=== PATIENT | female | born 1990 | race Caucasian/White ===

== ENCOUNTER 2020-03-17 10:35 | Outpatient (CLI) | payer OTHER, SELFPAY ==
[2020-03-17 11:36] LABS: Basophils Percent Auto 0.2 % (0.2-1.2); Eosinophils Absolute Auto 0.1 K/mm3 (0-0.3); Eosinophils Percent Auto 1.2 % (0-4.4); Hematocrit 35.6 % (37.0-47.0); Hemoglobin 12.3 g/dL (12.0-15.0); Lymphocytes Absolute Auto 1.41 K/mm3 (0.9-3.2); Mean Corpuscular HGB Conc 34.6 g/dl (32-36); Mean Corpuscular Hemoglobin 31.5 pg (26-34); Mean Corpuscular Volume 91.3 fl (80-100); Mean Platelet Volume 12.6 fl (7.4-10.4); Monocytes Percent Auto 9.9 % (2.6-8.5); Neutrophils Absolute Auto 7.4 K/mm3 (1.3-6.7); Neutrophils Percent Auto 73.7 % (45.5-73.1); Platelet Count Result 119 k/mm3 (150-375); Red Cell Distribution Width 14.6 % (11.5-14.5)
[2020-03-19 08:51] LABS: Rapid Plasma Reagin Reactive (NonReactive)
[2020-03-22 17:21] LABS: Treponema pallidum Ab FTA ABS Reactive (Nonreactive)
== END 2020-03-17 10:36 | disposition home or self-care (01) ==
PROVIDERS: PCP Emergency Medicine; Visit Provider Obstetrics & Gynecology
DX: Z01.89 Encounter for other specified special examinations (principal)
CPT/HCPCS: 36415; 85025; 86592; 86780; 86850; 86900; 86901

== ENCOUNTER 2020-03-19 05:30 | Inpatient (IN) | payer OTHER, SELFPAY ==
--- NOTE | 2020-02-29 14:13 | PC.NURSE ---
VERIFIED WITH OR SCHEDULE AND PATIENT --C/S ON 03/19/20 AT 0730 PATIENT INSTRUCTED SHE WILL NEED TO GET PREOP LABS DRAWN ON 03/17/20 AT [place] PATIENT INFORMED SHE WILL NEED TO BE IN OB 2 HOURS BEFORE SURGERY TIME AND NOTHING BY MOUTH AFTER MIDNIGHT THE NIGHT BEFORE SURGERY, PATIENT VERBALIZED HER UNDERSTANDING
[2020-03-19] VITALS (48 sets, daily range): BP systolic 60–117; BP diastolic 36–72; PULSE 54–94; RESP 16–20; TEMP 36.2–36.9; O2SAT 98–100; BMI 40.8
--- NOTE | 2020-03-19 06:38 | WPDANESEPPF ---
Anes - Initial Pre Proc Eval Procedure: Operation Date: 03/19/20 07:30 Proposed Procedures p Repeat Section - Nils He MD Date/Time: 03/19/20 06:38 Surgeon: Nils He MD Pre Op Diagnosis: Repeat Section Patient Data Age: 30 Gender: F Height: Weight: Last Vital Signs Pulse 94 03/19/20 06:04 BP 117/72 03/19/20 06:04 Allergies Allergy/AdvReac Type Severity Reaction Status Date / Time Sulfa (Sulfonamide Allergy Mild RASH Verified 02/29/20 13:59 Antibiotics) sulfite Allergy Unknown Skin Verified 02/29/20 13:59 Reaction Home Medications Medication Instructions Recorded Confirmed Type acetaminophen 300 mg-codeine 30 mg 1 tablet PO Q4H PRN #20 tablet 08/15/19 Rx tablet PNV cmb#95-ferrous fumarate-FA 1 tablet PO DAILY 02/29/20 02/29/20 History [] Patient hx anesthesia problems: none Family hx anesthesia problems: none PMFSH Family History Family History Father Hypertension Diabetes mellitus Grandparent Hypertension Diabetes mellitus Social History Social History Smoking status: Current every day smoker Substance use: former Spiritual care concerns: No Anes - Eval Final PreProcedure Day of Procedure 03/19/20 06:38 Patient weight: obese Heart: regular rate and rhythm Lungs: clear to auscultation Airway: Mallampati scale class II Neurological: alert and oriented Last oral intake: >/= 8 hours ASA classification: III Emergent: no Anesthetic plan: proceed Anesthesia type and monitoring: regional spinal and standard monitoring Informed Consent: The patient's anesthetic plan and its attendant risks and benefits were discussed with the patient/family/POA. Questions were solicited and answers provided to the satisfaction of the patient/family/POA.
--- NOTE | 2020-03-19 06:49 | LDADM ---
This patient, Marcelle Pascal, was admitted to Labor/Delivery/Recovery 120 on 03/19/20 at 05:30. Plans for labor, pain management and were discussed with patient. Patient/family oriented to hospital policies and general routines including ID bracelet, bed and alarms, visiting hours, pain management, procedures, bathroom and other care routines, personal items, smoking policy, room service/diet and guest tray routines, infant security routines, and visiting hours. Patient/Family are encouraged to report perceived risks to care and to ask questions if they do not understand what they are told or what they should do. See OBIX for further documentation.
--- NOTE | 2020-03-19 06:59 | P.HP_ITS ---
H&P: HPI History of Present Illness Chief complaint: Repeat Section Narrative: Marcelle Pascal is a 30 year old female 002 presents for repeat delivery . She has had 1 vaginal delivery and 1 delivery and presents today for repeat. We have discussed tubal ligation which she does not desire. records are on the chart essentially uncomplicated. She has had a history of syphilis which has been treated through the [facility] and currently no records are available for this. PMFSH Family History Family History Father Hypertension Diabetes mellitus Grandparent Hypertension Diabetes mellitus Social History Social History Smoking status: Current every day smoker Substance use: former Spiritual care concerns: No Meds Home Medications and Allergies Home Medications Medication Instructions Recorded Confirmed Type acetaminophen 300 mg-codeine 30 mg 1 tablet PO Q4H PRN #20 tablet 08/15/19 Rx tablet PNV cmb#95-ferrous fumarate-FA 1 tablet PO DAILY 02/29/20 02/29/20 History [] Allergies Allergy/AdvReac Type Severity Reaction Status Date / Time Sulfa (Sulfonamide Allergy Mild RASH Verified 02/29/20 13:59 Antibiotics) sulfite Allergy Unknown Skin Verified 02/29/20 13:59 Reaction Vital Signs Vital Signs - 24 hr 03/19/20 06:04 Pulse Rate 94 Blood Pressure 117/72 Exam Const: General: no acute distress Resp: Auscultation: clear to auscultation bilaterally Cardio: Rate: regular rate Rhythm: regular rhythm GI: GI Palp: Yes Soft to palpation Other: Fundal height 40cm heart tones 140 Assessment and Plan Assessment and plan (1) Term : Code(s): Z34.90 - Encounter for supervision of normal , unspecified, unspecified trimester Status: Acute (2) Previous delivery affecting : Code(s): O34.219 - Maternal care for unspecified type scar from previous delivery Status: Acute Additional Plan proceed with repeat low transverse section.
[2020-03-19] MEDS: KETOROLAC 30 MG/ML VIAL (*BKC) IV PUSH (07:20)
--- NOTE | 2020-03-19 08:05 | PM.OBPRVD ---
OB - Delivery Note Procedure Procedure: Procedures Operation Date: 03/19/20 07:30 <No data on this case meets the specified criteria> Route of delivery: Indication for instrumentation: other (prior delivery) Estimated blood loss (mL): 600 Anesthesia type: Spinal Disposition: PACU Narrative: Patient prepped draped usual sterile manner for this procedure. Pfannenstiel incision was made which was then carried down to the fascial layer which was extended bilaterally the length of the skin incision. Superiorly and inferiorly the fascia was dissected away from the rectus muscles which were then bluntly dissected the peritoneum was entered. Bladder flap was developed use scored in the lower section and a lower transverse incision was made. Vertex was delivered without difficulty and follow with rest of the baby. Cord is clamped and cut uterus was manually removed and the uterus was then delivered out of the abdominal cavity. Membranes and clots removed from the cavity of the uterus was then closed using 0 Monocryl in a running interlocking manner with good approximation hemostasis noted. Uterus was turned to the abdomen gutters were cleared of serosanguineous fluid and clots and the fascia was approximated 0 Vicryl left angle midline and running midline. Subcutaneous tissue was approximated in 2 0 plain suture and skin juana were used to approximate skin edges. Baby Weeks of gestation at delivery: 39 gender: Female Weight (pounds): 7 Weight (ounces): 11 score one minute: 8 score five minutes: 9
[2020-03-19] MEDS: diphenhydrAMINE HCl INJ 50 MG/ML VIAL 25 MG IV PUSH ×2 (08:45→09:15)
[2020-03-19] MEDS: LORATADINE 10 MG TABLET (10:30)
[2020-03-19] MEDS: OXYTOCIN 30 UNITS/NS 500 ML 30 UNITS/500 ML BAG 125 UNITS IV CONT (10:30)
--- NOTE | 2020-03-19 10:47 | SUR.PHASEI ---
RECOVERY OVER. ASSESSMENT STABLE WITH VS AND FUNDAL CHECKS. IVF INFUING WELL. SCD'S REMAIN. DRESSING D&I. REA DRAINING CLEAR YELLOW URINE. NO PAIN MEDS NEEDED AT THIS TIME. CONTINUES TO ITCH...GIVEN CLARITIN AND BENADRYL
--- NOTE | 2020-03-19 10:54 | OBPPTRN ---
Patient transferred to post room # 285 per stretcher. Support person present. Oriented to unit, room, information board, rooming in, admission packet and security measures. Patient verbalizes understanding.
[2020-03-19] MEDS: LACTATED RINGERS 1,000 ML 125 ML IV CONT ×2 (11:19→11:21)
[2020-03-19] MEDS: IBUPROFEN 600 MG TABLET PO ×2 (13:26→19:05)
[2020-03-19] MEDS: DEXTROSE 5%/0.45% SOD CHL 1,000 ML 125 ML IV CONT (14:31)
[2020-03-20] MEDS: IBUPROFEN 600 MG TABLET PO ×4 (00:40→23:45)
[2020-03-20] MEDS: SIMETHICONE 80 MG TAB.CHEW PO ×9 (00:41→23:45)
[2020-03-20 03:30] VITALS: BP 119/63; PULSE 89; RESP 16; TEMP 36.8
[2020-03-20 04:19] LABS: Basophils Percent Auto 0.3 % (0.2-1.2); Eosinophils Absolute Auto 0.2 K/mm3 (0-0.3); Eosinophils Percent Auto 1.8 % (0-4.4); Hematocrit 32.1 % (37.0-47.0); Hemoglobin 10.8 g/dL (12.0-15.0); Immature Granulocyte Absolute 0.09 K/mm3 (0.00-0.031); Immature Granulocyte Percent A 0.9 % (0-0.5); Lymphocytes Absolute Auto 1.58 K/mm3 (0.9-3.2); Lymphocytes Percent Auto 15.7 % (18.3-44.2); Mean Corpuscular HGB Conc 33.6 g/dl (32-36); Mean Corpuscular Hemoglobin 31.9 pg (26-34); Mean Corpuscular Volume 94.7 fl (80-100); Mean Platelet Volume 12.3 fl (7.4-10.4); Monocytes Percent Auto 9.8 % (2.6-8.5); Neutrophils Absolute Auto 7.2 K/mm3 (1.3-6.7); Neutrophils Percent Auto 71.5 % (45.5-73.1); Platelet Count Result 97 k/mm3 (150-375); Red Blood Count 3.39 M/mm3 (4.2-5.4); Red Cell Distribution Width 14.9 % (11.5-14.5); White Blood Count 10.1 K/mm3 (4.5-10.0)
[2020-03-20] MEDS: MULTIVIT/MIN/PREN/FOL AC/IRON TABLET 1 TAB PO (08:01)
[2020-03-20] MEDS: DOCUSATE SODIUM 100 MG CAPSULE PO ×2 (08:01→17:18)
[2020-03-20] MEDS: LANOLIN (LANSINOH) 7.5 GM CREAM 1 APPLIC TOPICAL (08:03)
[2020-03-20 08:15] VITALS: BP 100/72; PULSE 93; RESP 18; TEMP 36.9; O2SAT 98
--- NOTE | 2020-03-20 14:40 | PC.NURSE ---
Consulted with patient, mother is attempting in football positioning in a shallow latch reporting tenderness with feeding. Mother has bruising to right areola from possible incorrect latching. Reviewed feeding cues, frequencies, duration of feedings, feeding elimination flow sheet, and signs of adequate intake. Reviewed positioning/alignment in cross cradle, holding breast in U hold and guided asymmetrical latch on. Discussed rational for each. Several attempts before infant was able to latch correctly. Mother quickly reported she could feel was latched more deeply and had no discomfort. Infant nursed eagerly, with steady draws and frequent swallowing noted. Reviewed signs of a correct latch, effective nursing and suck swallow ratio. was able to maintain latch without discomfort to mother. Nipple care reviewed. Suggested mother stimulate while feeding to keep infant awake and nursing effectively for increased intake and to assist with maintaining deep latch. Demonstrated how to adjust latch more deeply while feeding. Instructed mother to call out for RN assistance if she is unable to latch infant for feeding or she has discomfort with nursing. Instructed feeding should be initiated three hours from start of last feeding or if feeding cues are noted before. Mother voiced understanding of information shared.
--- NOTE | 2020-03-20 15:08 | WPDANLDPN2 ---
Anes-Prog Note L&D Date/Time: 03/20/20 15:08 Comfortable throughout: section Neuraxial method: spinal Epidural/Spinal procedure site: clean & non-tender Neuro status: Neuro function grossly intact. Cardiovascular status: normal Respiratory status: normal Airway patency: baseline Mental status: baseline Post-Op hydration status: normal Vital Signs: Last Vital Signs Temp 98.4 F 03/20/20 08:15 Pulse 93 03/20/20 08:15 Resp 18 03/20/20 08:15 BP 100/72 03/20/20 08:15 Pulse Ox 98 03/20/20 08:15 I/O: Intake & Output 03/19/20 03/20/20 03/20/20 23:59 07:59 15:59 Intake Total 800 1000 Output Total 1700 2000 Balance -900 -1000 Post-procedural complaints: pruritis severe, treatment refractory Patient feedback: Patient satisfied with anesthetic care.
--- NOTE | 2020-03-20 15:09 | WPDANLDNPN2 ---
Anes-Prog Note L&D-Neuraxial Date/Time: 03/20/20 15:09 Neuraxial medications: intrathecal PF morphine Opiod-related complaints: pruritis severe, treatment refractory Patient feedback: Patient satisfied with post-operative pain management.
--- NOTE | 2020-03-20 16:49 | P.PNOB_ITS ---
OB - PN: Subj Subjective Date/time seen: 03/20/20 16:49 30yo [id number] s/p rLTCS, POD #1 Today, Marcelle said she is doing ok; reports pain at the incision, abdomen, back. She is taking the pain meds which help. She feels like she's bloated and needs to pass gas (has not passed flatus). She reports her vaginal bleeding is light. She is tolerating regular diet w/o N/V. She is voiding without issue. She has ambulated around the room without s/sx of anemia. She is breast feeding. OB - PN: Obj Data Labs CBC & Chem 7: 03/20/20 03:48 Labs: Laboratory Results - last 24 hr 03/20/20 03/20/20 03:48 03:48 WBC 10.1 H RBC 3.39 L Hgb 10.8 L Hct 32.1 L MCV 94.7 MCH 31.9 MCHC 33.6 RDW 14.9 H Plt Count 97 L MPV 12.3 H Immature Gran % (Auto) 0.9 H Neut % (Auto) 71.5 Lymph % (Auto) 15.7 L [place] % (Auto) 9.8 H Eos % (Auto) 1.8 Baso % (Auto) 0.3 Lymph # (Auto) 1.58 [place] # (Auto) 1.0 H Eos # (Auto) 0.2 Baso # (Auto) 0.0 Abs Immat Gran (auto) 0.09 H Absolute Neuts (auto) 7.2 H Absolute Nucleated RBC 0.0 Nucleated RBC % 0.0 RPR Cancelled OB - PN A/P Assessment and Plan (1) S/P section: Code(s): Z98.891 - History of uterine scar from previous surgery Status: Acute (2) 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 - possible d/c home tomorrow Time Spent With Patient Time: Total time spent is greater than 50% in coordination of care (as documented) at patient's floor/unit and/or counseling patient: Review of Systems Constitutional: Constitutional: Denies body ache(s) and Denies chills Cardiovascular: Cardiovascular: Denies rapid heart rate Respiratory: Respiratory: Denies cough and Denies dyspnea Gastrointestinal: Gastrointestinal: Reports abdominal pain, Reports constipation, Denies nausea and Denies vomiting Genitourinary: Comments: normal bleeding Integumentary/Breasts: Skin/Breast: Reports breast swelling and Reports breast pain Neurologic: Denies headache(s) Exam Const: General: comfortable, no acute distress, alert and awake Orientation/consciousness: patient oriented x3 Resp: Effort & Inspection: normal respiratory effort Auscultation: clear to auscultation bilaterally Cardio: Rate: regular rate GI: Auscultation: normal bowel sounds Other: mildly distended, soft, tympanic, pfannenstiel incision is covered with clean dressing. : Other: normal lochia, fundus fim at umbilicus Psych: Appearance: grossly normal Attitude: cooperative
[2020-03-20 20:27] VITALS: BP 114/73; PULSE 84; RESP 16; TEMP 36.8
--- NOTE | 2020-03-21 07:30 | PC.NURSE ---
PT introductions made and plan of care discussed per post op c section, pain management, breast feeding, daily care activities. PT verbalized understanding of such care.
[2020-03-21 07:45] VITALS: BP 122/72; PULSE 72; RESP 18; TEMP 36.6; O2SAT 100
[2020-03-21 08:15] VITALS: PULSE 72; RESP 18; O2SAT 100
[2020-03-21] MEDS: DOCUSATE SODIUM 100 MG CAPSULE PO ×2 (08:15→16:39)
[2020-03-21] MEDS: SIMETHICONE 80 MG TAB.CHEW PO ×2 (08:16→16:39)
[2020-03-21] MEDS: IBUPROFEN 600 MG TABLET PO ×2 (08:16→16:40)
[2020-03-21] MEDS: MULTIVIT/MIN/PREN/FOL AC/IRON TABLET 1 TAB PO (08:17)
--- NOTE | 2020-03-21 10:30 | PC.NURSE ---
Mother is able to independently latch infant with appropriate positioning/alignment. She reports slight nipple discomfort, is feeding as required and waking to feed if needed. Advised to hold breast for latch and during entire feeding to assist with maintaining deep latch. Demonstrated how to adjust latch more deeply while feeding. Mother was able to correct latch during feeding and reports no discomfort. Infant has had at least 8 effective feedings in the past 24 hours, and is currently meeting outcomes for weight, output, jaundice and feeding frequencies. Mother states she feels confident to continue effective at home. Reviewed transition to breast milk, signs of adequate intake, and engorgement/relief. Instructed to call ICP if intake/output less than required. Reviewed regular medications mother is taking. Information provided per Carolyn. Reviewed community resources on the [facility] website and in the Mom/Baby guide. Information on outpatient services provided. Mother has no further questions at this time.
--- NOTE | 2020-03-21 12:16 | PM.OBDSVD ---
DS: Admitting Diagnosis Admitting Diagnosis Admitting Diagnosis: Encounter for supervision of normal , unspecified, unspecified trimester OB - DS: Summary OB Procedures : None OB Procedures Intrapartum: OB Procedures: : None Peripartum Data Procedures: Procedures Operation Date: 03/19/20 07:30 Actual Procedures Side Surgeon p Section Bilateral Nils He MD Time Spent with Patient Time attestation: Total time spent providing and/or coordinating discharge services: Discharge Plan Discharge Discharging Clinician: Nils eH Patient Disposition: Home, Self-Care Activity: as tolerated Diet: as tolerated Wound Care Instructions: incision open to air Discharge Instructions: juana out at hospital visit Patient Instructions: Antibiotic Form Stand Alone Forms: General Discharge Information Follow-up/Referrals: Nils He MD [Physician] - 3 Weeks Discharge Medications: New hydrocodone-acetaminophen 5-325 mg Tablet 1 tab PO Q3H PRN (Reason: Moderate Pain (4-6)) Qty: 20 RF: 0 ibuprofen 600 mg Tablet 600 mg PO Q6H PRN (Reason: Cramping) Qty: 30 RF: 0 simethicone 80 mg Tablet,Chewable 80 mg PO Q2H PRN (Reason: Gas) Qty: 30 RF: 0 Continued PNV cmb#95-ferrous fumarate-FA [] 28 mg iron- 800 mcg Tablet 1 tablet PO DAILY RF: 0 Discontinued acetaminophen-codeine [Tylenol-Codeine #3] 300-30 mg tablet 1 tablet PO Q4H PRN (Reason: pain) Qty: 20 RF: 1 Date of admission: 03/19/20 05:30 Primary Care Provider: Johnathon Magana Admitting Provider: Nils He Attending physician on admission: Nils He
--- NOTE | 2020-03-21 14:30 | PC.NURSE ---
PT received discharge instructions per protocol and verbalized understanding of such care.
--- NOTE | 2020-03-21 16:52 | PC.NURSE ---
Patient was given the opportunity to view the discharge video Mother & Baby Care, The First Two Weeks and to ask questions. Patient declined viewing the video and has been given the mother/baby guide for home reference.
--- NOTE | 2020-03-21 17:34 | PC.NURSE ---
PT discharged to home ambulatory accompanied by significant other and to waiting car. follow up appointments confirmed
[2020-03-23 07:52] VITALS: BP 133/66; PULSE 80; RESP 16; TEMP 36.8
[2020-03-26 10:25] LABS: Reference Lab Test Result Reactive
== END 2020-03-21 17:34 | disposition home or self-care (01) | DRG 540 ==
LOC: ANHLDR 06:08 → ANHOB2 10:58
PROVIDERS: Admitting Provider Obstetrics & Gynecology; PCP Emergency Medicine; Visit Provider Obstetrics & Gynecology
PROC: 10D00Z1 Extraction of Products of Conception, Low, Open Approach (ICD-10-PCS; CPT 59514; principal; 2020-03-19 07:30)
DX: O34.211 Maternal care for low transverse scar from previous cesarean delivery (principal); Z37.0 Single live birth; Z3A.39 39 weeks gestation of pregnancy; O99.214 Obesity complicating childbirth; E66.9 Obesity, unspecified; O99.73 Diseases of the skin and subcutaneous tissue complicating the puerperium; L29.9 Pruritus, unspecified; O98.12 Syphilis complicating childbirth
CPT/HCPCS: 36415; 85025; 86592; 86593; A9270; J0131; J1200; J1885; J2274; J2370; J2405; J2590; J7120

== ENCOUNTER → 2022-01-28 16:58 | Outpatient (CLI) | payer OTHER, SELFPAY ==
--- NOTE | ~2022-01-28 | XR_ITS ---
EXAMINATION: XR knee RT 3V DATE: 01/28/2022 17:25 INDICATION: Chondromalacia patellae TECHNIQUE: Three views of the right knee were obtained. COMPARISON: 07/04/2015 FINDINGS: Alignment is normal. No fracture or osteochondral lesion. Joint spaces are normal with no e rosions. No joint effusion/synovitis. Soft tissues are unremarkable. IMPRESSION: 1. No acute osseous abnormality. Reviewed, dictated and finalized at location F.
== END ==
PROVIDERS: PCP Emergency Medicine; Visit Provider Emergency Medicine
DX: M22.41 Chondromalacia patellae, right knee (principal)
CPT/HCPCS: 73562

== ENCOUNTER 2022-05-01 11:13 | Outpatient (CLI) | payer OTHER, SELFPAY ==
[2022-05-01 12:23] LABS: Rheumatoid Factor < 8.6 IU/ML (<12)
[2022-05-01 13:35] LABS: Erythrocyte Sedimentation Rate 14 mm/hr (0-20)
== END 2022-05-01 11:14 | disposition home or self-care (01) ==
LOC: ANHLAB 11:15
PROVIDERS: PCP Emergency Medicine; Visit Provider Nurse Practitioner Family
DX: M06.9 Rheumatoid arthritis, unspecified (principal)
CPT/HCPCS: 36415; 85652; 86038; 86039; 86430

== ENCOUNTER → 2022-06-11 09:46 | Outpatient (CLI) | payer OTHER, SELFPAY ==
--- NOTE | ~2022-06-11 | US_ITS ---
EXAMINATION: US thyroid DATE: 06/11/2022 10:08 INDICATION: Alicia's thyroiditis TECHNIQUE: Multiple ultrasound images of the thyroid were obtained. COMPARISON: None. FINDINGS: The right thyroid lobe measures 4.9 x 1.1 x 1.4 cm. The left thyroid lobe measures 3.7 x 0.8 x 1.4 c m. Diffuse heterogeneous decreased echogenicity and coarsened echotexture throughout the thyroid. No discrete nodules identified. IMPRESSION: 1. Heterogeneous decreased echogenicity and coarsened echotexture throughout the thyroid without disc rete nodules which would be consistent with provided history of Alicia's thyroiditis. Reviewed, dictated and finalized at location B. IMPRESSION: 1. Heterogeneous decreased echogenicity and coarsened echotexture throughout th e thyroid without discrete nodules which would be consistent with provided hist ory of Alicia's thyroiditis.
== END ==
PROVIDERS: PCP Emergency Medicine; Visit Provider Emergency Medicine
DX: E06.3 Autoimmune thyroiditis (principal)
CPT/HCPCS: 76536

== ENCOUNTER 2022-08-27 14:17 | Outpatient (CLI) | payer OTHER, SELFPAY ==
[2022-08-27 18:38] LABS: Alanine Aminotransferase 27 U/L (6-35); Albumin Level 3.9 g/dL (3.5-5.1); Alkaline Phosphatase 88 U/L (38-126); Anion Gap 3 mmol/L (8-16); Aspartate Amino Transferase 34 U/L (14-36); Bilirubin,Total 0.8 mg/dL (0.2-1.3); Blood Urea Nitrogen 21 mg/dL (7-17); Calcium 8.8 mg/dL (8.4-10.2); Carbon Dioxide 30 mmol/L (22-30); Chloride 104 mmol/L (98-107); Cholesterol 153 mg/dL (0-200); Estimated Glomerular Filt Rate > 60; Glucose 80 mg/dL (65-110); HDL Direct 46 mg/dL; Potassium 4.1 mmol/L (3.4-5.0); Sodium 137 mmol/L (137-145); Triglycerides 100 mg/dL (<150)
[2022-08-27 18:51] LABS: LDL Cholesterol Direct 82 mg/dL
[2022-08-27 19:46] LABS: Hematocrit 40.8 % (37.0-47.0); Hemoglobin 13.8 g/dL (12.0-15.0); Mean Corpuscular HGB Conc 33.8 g/dl (32-36); Mean Corpuscular Hemoglobin 32.1 pg (26-34); Mean Corpuscular Volume 94.9 fl (80-100); Mean Platelet Volume 12.6 fl (7.4-10.4); Platelet Count Result 184 k/mm3 (150-375); Red Cell Distribution Width 12.8 % (11.5-14.5); White Blood Count 6.1 K/mm3 (4.5-10.0)
== END 2022-08-27 14:18 | disposition home or self-care (01) ==
LOC: ANHBWCLAB 14:18
PROVIDERS: PCP Family Medicine; Visit Provider Family Medicine
DX: E07.9 Disorder of thyroid, unspecified (principal)
CPT/HCPCS: 36415; 80053; 80061; 84443; 85027

== ENCOUNTER 2022-11-11 08:45 | Outpatient (CLI) | payer OTHER, SELFPAY ==
--- NOTE | ~2022-11-11 | XR_ITS ---
Right foot Technique: AP and lateral standing views were obtained. Clinical History: Abnormal immunological findings Findings: No acute fracture or dislocation is seen. Osseous alignment is anatomic. Joint spaces are p reserved without erosive or degenerative change. Soft tissues are unremarkable. Impression: Unremarkable right foot radiographs. Reviewed, dictated and finalized at location . Impression: Unremarkable right foot radiographs.
--- NOTE | ~2022-11-11 | XR_ITS ---
Left foot Technique: AP and lateral standing views were obtained. Clinical History: Abnormal immunological findings Findings: No acute fracture or dislocation is seen. Osseous alignment is anatomic. Joint spaces are p reserved without erosive or degenerative change. Soft tissues are unremarkable. Impression: Unremarkable left foot radiographs. Reviewed, dictated and finalized at location . Impression: Unremarkable left foot radiographs.
--- NOTE | ~2022-11-11 | XR_ITS ---
Bilateral Hands Technique: Bilateral PA, oblique, and lateral views, and ball-catcher's view were obtained. Clinical History: Abnormal immunological findings Findings: No acute fracture or dislocation is seen. Osseous alignment is anatomic. Joint spaces are p reserved. Soft tissues are unremarkable. Impression: Unremarkable bilateral hand radiographs. Reviewed, dictated and finalized at location . Impression: Unremarkable bilateral hand radiographs.
--- NOTE | ~2022-11-11 | XR_ITS ---
Right Shoulder Technique: AP and scapular Y views were obtained. Clinical History: Abnormal immunological findings Findings: No fracture or dislocation is seen. Osseous alignment is anatomic. The glenohumeral and acr omioclavicular joint spaces are preserved. Soft tissues are unremarkable. Impression: Unremarkable right shoulder radiographs. Reviewed, dictated and finalized at [facility]. Impression: Unremarkable right shoulder radiographs.
--- NOTE | ~2022-11-11 | XR_ITS ---
Left Shoulder Technique: AP and scapular Y views were obtained. Clinical History: Arthritis Findings: No fracture or dislocation is seen. Osseous alignment is anatomic. The glenohumeral and acr omioclavicular joint spaces are preserved. Soft tissues are unremarkable. Impression: Unremarkable left shoulder radiographs. Reviewed, dictated and finalized at [facility]. Impression: Unremarkable left shoulder radiographs.
[2022-11-11 19:24] LABS: Appearance Urine Clear (Clear); Bilirubin Urine Negative (Negative); Blood Urine Negative (Negative); Color Urine Yellow (Yellow); Glucose Urine UA Negative (Negative); Ketones Urine Negative (Negative); Leukocyte Esterase Ur Negative LEU/UL (Negative); Nitrate Urine Negative (Negative); Protein Urine Negative (Negative); Specific Grav Ur 1.019 (1.001-1.035); Urobilinogen Urine 0.2 mg/dL (<2.0); pH Urine 5.5 (5.0-9.0)
[2022-11-11 19:24] LABS: Alanine Aminotransferase 19 U/L (6-35); Albumin Level 4.8 g/dL (3.5-5.1); Alkaline Phosphatase 81 U/L (38-126); Anion Gap 8 mmol/L (8-16); Aspartate Amino Transferase 32 U/L (14-36); Bilirubin,Total 1.1 mg/dL (0.2-1.3); Blood Urea Nitrogen 18 mg/dL (7-17); CRP < 0.5 mg/dL (<1.0); Calcium 9.5 mg/dL (8.4-10.2); Carbon Dioxide 24 mmol/L (22-30); Chloride 105 mmol/L (98-107); Estimated Glomerular Filt Rate > 60; Glucose 87 mg/dL (65-110); Potassium 4.1 mmol/L (3.4-5.0); Sodium 137 mmol/L (137-145)
[2022-11-11 19:28] LABS: Basophils Percent Auto 0.4 % (0.2-1.2); Eosinophils Absolute Auto 0.2 K/mm3 (0-0.3); Eosinophils Percent Auto 3.3 % (0-4.4); Hematocrit 42.4 % (37.0-47.0); Hemoglobin 14.3 g/dL (12.0-15.0); Immature Granulocyte Absolute 0.01 K/mm3 (0.00-0.031); Immature Granulocyte Percent A 0.2 % (0-0.5); Lymphocytes Absolute Auto 1.78 K/mm3 (0.9-3.2); Lymphocytes Percent Auto 32.8 % (18.3-44.2); Mean Corpuscular HGB Conc 33.7 g/dl (32-36); Mean Corpuscular Hemoglobin 31.1 pg (26-34); Mean Corpuscular Volume 92.2 fl (80-100); Mean Platelet Volume 12.8 fl (7.4-10.4); Monocytes Absolute Auto 0.6 K/mm3 (0.1-0.6); Monocytes Percent Auto 10.7 % (2.6-8.5); Neutrophils Absolute Auto 2.9 K/mm3 (1.3-6.7); Neutrophils Percent Auto 52.6 % (45.5-73.1); Platelet Count Result 198 k/mm3 (150-375); White Blood Count 5.4 K/mm3 (4.5-10.0)
[2022-11-11 19:31] LABS: Add Urine Microscopic? NO
[2022-11-11 19:42] LABS: Complement C3 97 mg/dL (88-165)
[2022-11-11 20:19] LABS: Erythrocyte Sedimentation Rate 5 mm/hr (0-20)
[2022-11-13 19:25] LABS: Treponema pallidum Ab FTA ABS Reactive (Nonreactive)
[2022-11-13 21:29] LABS: Anti Cyclic Citrullinated Pept <16 Units (<20)
[2022-11-14 04:53] LABS: Thyroid Peroxidase Antibodies 13 IU/mL (<9)
[2022-11-15 09:27] LABS: SM Antibody <1.0; SM/RNP Antibody <1.0; SS-A <1.0; SS-B <1.0
[2022-11-16 16:49] LABS: Chromatin Antibody <1.0
== END 2022-11-11 08:46 | disposition home or self-care (01) ==
PROVIDERS: PCP Family Medicine; Visit Provider Internal Medicine
DX: R76.8 Other specified abnormal immunological findings in serum (principal); M19.90 Unspecified osteoarthritis, unspecified site
CPT/HCPCS: 36415; 73030; 73130; 73620; 80053; 81003; 85025; 85652; 86140; 86160; 86200; 86225; 86235; 86376; 86780

== ENCOUNTER 2022-11-17 13:18 | Outpatient (CLI) | payer OTHER, SELFPAY ==
--- NOTE | ~2022-11-17 | XR_ITS ---
EXAM: XR knee RT min 4V, XR knee LT min 4V DATE: 11/17/2022 13:40 HISTORY: M06.9 - Rheumatoid arthritis, unspecified . COMPARISON: Left knee 05/01/2022, images only, x-ray right knee 01/28/2022. FINDINGS: Normal mineralization. No fracture or dislocation. No lytic or blastic lesion. Joint space s are maintained. No erosion or periosteal change. Soft tissues within normal limits. Small bilateral knee joint effusions. IMPRESSION: No radiographic evidence of inflammatory arthropathy. Small bilateral knee joint effusion s. Reviewed, dictated and finalized at location K. IMPRESSION: No radiographic evidence of inflammatory arthropathy. Small bilater al knee joint effusions.
== END 2022-11-17 13:19 | disposition home or self-care (01) ==
LOC: ANHBWCIMG 13:19
PROVIDERS: PCP Family Medicine; Visit Provider Internal Medicine
DX: M06.9 Rheumatoid arthritis, unspecified (principal); M19.90 Unspecified osteoarthritis, unspecified site; M25.461 Effusion, right knee; M25.462 Effusion, left knee
CPT/HCPCS: 73564

== ENCOUNTER 2023-02-02 11:28 | Outpatient (CLI) | payer BC, OTHER, SELFPAY ==
[2023-02-02 20:25] LABS: Free T4 Free Thyroxine 0.88 ng/mL (0.78-2.19)
[2023-02-05 05:12] LABS: Triiodothyronine T3 Free 2.9 pg/mL (2.3-4.2)
== END 2023-02-02 11:29 | disposition home or self-care (01) ==
LOC: ANHBWCLAB 11:30
PROVIDERS: PCP Family Medicine; Visit Provider Family Medicine
DX: R76.8 Other specified abnormal immunological findings in serum (principal)
CPT/HCPCS: 36415; 84439; 84443; 84481

== ENCOUNTER 2023-06-15 09:38 | Outpatient (CLI) | payer BC, SELFPAY ==
[2023-06-15 18:57] LABS: Pregnancy On Board Control Positive; Urine Pregnancy Test Negative
== END 2023-06-15 09:39 | disposition home or self-care (01) ==
PROVIDERS: PCP Family Medicine; Visit Provider Family Medicine
DX: N92.6 Irregular menstruation, unspecified (principal)
CPT/HCPCS: 81025

== ENCOUNTER 2024-03-30 11:03 | Outpatient (CLI) | payer BC, SELFPAY ==
[2024-04-02 04:13] LABS: Amphetamine 9988 ng/mL (<250); Amphetamines POSITIVE ng/mL (<500); Barbiturates NEGATIVE ng/mL (<300); Benzodiazepines NEGATIVE ng/mL (<100); Cocaine Metabolite NEGATIVE ng/mL (<150); Methadone Metabolite NEGATIVE ng/mL (<100); Opiates NEGATIVE ng/mL (<100); Oxidant NEGATIVE mcg/mL (<200); pH 5.9 (4.5-9.0)
== END 2024-03-30 11:04 | disposition home or self-care (01) ==
LOC: ANHBWCLAB 11:04
PROVIDERS: PCP Nurse Practitioner Adult Health; Visit Provider Nurse Practitioner Adult Health
DX: Z79.899 Other long term (current) drug therapy (principal)
CPT/HCPCS: 80299

== ENCOUNTER 2024-09-19 14:31 | Outpatient (CLI) | payer BC, SELFPAY ==
[2024-09-19 20:36] LABS: Beta HCG Quantitative 346.15 mIU/ML
--- OUTSIDE RECORDS SUMMARY | 2024-09-22 14:08 | XMS_ITS | Data Portability ---
Author Organization [facility] Address [address] [place] [address] Assessment No assessment recorded. Plan of Treatment Reminders Order Date Submit Date Provider Last Modified By Organization Details Last Modified Time Details Appointments None record ed. Lab None record ed. Referral None record ed. Procedures None record ed. Surgeries None record ed. Imaging None record ed. Medication Orders None record ed. Patient TargetsNo targets recorded. Patient InstructionsNo instructions recorded. Reason for Referral None Reported. 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 Medical Equipment None Reported. Allergies Allergen ID Allergen Name Allergen Category Reaction Reaction Severity Criticality Documentation Date Start Date Code Code System Note Provider Name and Address Organization Details Recorded Time [id number] 2824e Substance with sulfonami de structure and antibacte rial mechanism of action (substanc e) medicatio n Not available Not available Not available 06/04/2016 97695 8003 SNOMED Not Available Not Available Not Available Medications Not known to be on any medication Vitals Date Recorded Respiratory rate Body height Body temperature Body mass index (BMI) Body weight Heart rate Systolic blood pressure Diastolic blood pressure Provider Name and Address Organization Details Last Updated DateTime 6 28 /min 157.48 cm 97.6 [degF] 25.3 kg/m2 61939.1 95160 g 84 /min 92 mm[Hg] 64 mm[Hg] Charity Parks MA [facility] 6 10:46:48 Social History Question Answer Notes LastModified by Organizat ion Details LastModified Time Tobacco Smoking Status Current Some Day Smoker Charity Parks MA null, [facility] 06/04/2016 10:46:48 How Much Tobacco Do You Smoke? 1 PPW Information not available 06/04/2016 How Many Years Have You Smoked Tobacco? 12 Information not available 06/04/2016 Sex: Unknown Functional Status None recorded. Mental Status None recorded. Family History Relationship Description Onset Age of this Age Resolved Age Notes LastModified by Organization Details LastModified Time Father History of hypertension [email or web address] Not available 10:46:48 Father Diabetes mellitus [email or web address] Not available 06/04 10:46:48 Paternal Grandfather History of hypertension kfenderson Not available 10:46:48 Paternal Grandfather Diabetes mellitus [email or web address] Not available 06/04 10:46:48 Medical History Condition Response Coronary Artery Disease N Other N High Blood Pressure N Atrial Fibrillation N Kidney or Bladder Problems N Thyroid Problems N GI Problems N Depression N COPD N Blood Clots N Skin Problems N Anemia N Heart Attack ([place]) N Anxiety Disorder N Diabetes N Muscle, Joint, or Bone Problems N Seizures/Epilepsy N Acid Reflux (GERD) N Cancer N Stroke N Asthma N Allergies N High Cholesterol N Hepatitis N Liver Disease N Headaches N Heart Failure N Osteoporosis N Gynecological HistoryNo gynecological history recorded. Obstetrics History GPAL:G 0 P 0 0 0 0 Past Encounters Encounter ID Performer Location Encounter Start Date Encounter Closed Date Diagnosis/Indication Diagnosis SNOMED-CT Code Diagnosis ICD10 Code Diagnosis Note [id number] MD Taurus Hager (Adult Med) [address] [place] [address] 06/04/2016 10:29:46 06/04/2016 11:30:44 Adult health examination 038816638 Z00.00 Depressive disorder 3548 9007 F32.8 Pt offered referral to therapist. Says she is OK for now Family his tory of Thyroid disorder 565139088 Z83.49 Pt was tested one year ago Distorted body image 633 89052 F45.22 Pt requesting phentermin e for weight loss Health Concerns Section Related Observation LastModified by Organization Detai ls LastModified Time None Recorded Concern Status LastModified by Organization Details LastModified Time None Recorded Advance Directives Directive None Recorded Payers Encounter Date Sequence Insurance Name Policy Number Policy Melgar Covered Member ID Melgar Member ID Guarantor Name 06/04/2016 1 [facility] - DOS PRIOR TO 2021 (MEDICAID REPLACEMENT - HMO) Marcelle Pascal [id number] Marcelle Pascal Notes Date Note Type Note Provider Name and Address Organization Details Recorded Time 06/04/2016 text/html New patient visit Aliza Vargas MD Attn: [employer],[address] [place], [address], [facility] 06/04/2016 11:34:39 OBGyn Episode No OBEpisode recorded.
--- OUTSIDE RECORDS SUMMARY | 2024-09-22 14:08 | XMS_ITS | Continuity of Care Document ---
Author Organization [facility] Address [address] [place] [address] [place] [address] Phone Care Team Providers Care Hospice Clinical Manager Name Role Phone Johnathon Magana MD Unavailable Unavailable Allergies, Adverse Reactions, Alerts Substance Reaction Status Criticality Sulfa (Sulfonamide Antibiotics) Active No Information Medications Medication Instructions Dosage Effective Dates (start - stop) Status Comments benzonatate 100 mg capsule take 1 capsule by oral route 3 times every day 100 MG - Active prednisone 20 mg tablet take 3 Tablet by oral route every day 60 MG - Active phentermine 37.5 mg tablet take 1 tablet by oral route every day before breakfast 37.5 MG - Active disp on 01/22/22 Problems Condition Type Effective Dates (start - stop) Clini gilbert Status Comments No Known Problems Procedures Procedure Date OFFICE/OUTPATIENT VISIT, EST OFFICE/OUTPATIENT VISIT, EST OFFICE/OUTPATIENT VISIT, EST OFFICE/OUTPATIENT VISIT, EST OFFICE/OUTPATIENT VISIT, EST OFFICE/OUTPATIENT VISIT, EST OFFICE/OUTPATIENT VISIT, EST PREV VISIT, EST, AGE 18-39 OFFICE/OUTPATIENT VISIT, EST OFFICE/OUTPATIENT VISIT, EST PREV VISIT, EST, AGE 18-39 PREV VISIT, EST, AGE 18-39 OFFICE/OUTPATIENT VISIT, EST PREV VISIT, EST, AGE 18-39 OFFICE/OUTPATIENT VISIT, EST OFFICE/OUTPATIENT VISIT, EST OFFICE/OUTPATIENT VISIT, EST PREV VISIT, EST, AGE 18-39 OFFICE/OUTPATIENT VISIT, EST OFFICE/OUTPATIENT VISIT, EST PREV VISIT, NEW, AGE 18-39 Advance Directives Directive Yes / No Effective Date File Name No Information Encounters Encounter Description Practice Location Reason(s) For Visit Diagnoses Date Provider Providers Copied on Encounter OFFICE/OUTPA TIENT VISIT, [facility], [address], [place], [place], [address], [place] tel:[phone] [facility] cough1 (chief complaint) Viral infection 2 Chino Pedro [address], [place], [place], [address] , [place]. tel:[phone] OFFICE/OUTPA TIENT VISIT, [facility], [address], [place], [place], [address], [place] tel:[phone] [facility] vandana (chief complaint) Vandana's thyroiditis 2 Chino Pedro [address], [place], [place], [address] , [place]. tel:[phone] OFFICE/OUTPA TIENT VISIT, [facility], [address], [place], [place], [address], [place] tel:[phone] [facility] hashimoto1 (chief complaint) PANCHO (chief complaint) Vandana's thyroiditisRaised antibody titer 2 Chino Pedro [address], [place], [place], [address] , [place]. tel:[phone] OFFICE/OUTPA TIENT VISIT, [facility], [address], [place], [place], [address], [place] tel:[phone] [facility] PANCHO (chief complaint) hashimoto1 (chief complaint) Raised antibody titerHashimoto's thyroiditisPain in unspecified joint 2 Chino Pedro [address], [address], [place], [place], [address] , [place]. tel:[phone] OFFICE/OUTPA TIENT VISIT, EST [facility], [address], [place], [place], [address], [place] tel:[phone] [facility] knee pain1 (chief complaint) Raised antibody titerPain in unspecified joint Sep- 2 Chino Diego. [address], [place], [place], [address] , [place]. tel:[phone] OFFICE/OUTPA TIENT VISIT, EST [facility], [address], [place], [place], [address], [place] tel:[phone] [facility] knee pain1 (chief complaint) Pain in right kneeChondromalacia patellae, right knee December- 2 Chino Diego. [address], [place], [place], [address] , [place]. tel:[phone] OFFICE/OUTPA TIENT VISIT, EST [facility], [address], [place], [place], [address], [place] tel:[phone] [facility] weight loss1 (chief complaint) Abnormal weight loss 2 Chino Diego. [address], [place], [place], [address] , [place]. tel:[phone] PREV VISIT, EST, AGE 18-39 [facility], [address], [place], [place], [address], [place] tel:[phone] [facility] physical (chief complaint) Encounter for general adult medical examination without abnormal findings 2 Chino Diego. [address], [place], [place], [address] , [place]. tel:[phone] OFFICE/OUTPA TIENT VISIT, EST [facility], [address], [place], [place], [address], [place] tel:[phone] [facility] sick (chief complaint) Viral infection Dec-0 1 Chino Pedro [address], [place], [place], [address] , [place]. [phone] OFFICE/OUTPA TIENT VISIT, EST [facility], [address], [place], [place], [address], [place] tel:[phone] [facility] eczema1 (chief complaint) weight1 (chief complaint) Abnormal weight gainEczema 1 Chino Pedro [address], [place], [place], [address] , [place]. tel:[phone] PREV VISIT, EST, AGE 18-39 [facility], [address], [place], [place], [address], [place] tel:[phone] [facility] physical (chief complaint) Encounter for general adult medical examination without abnormal findings 1 Chino Pedro [address], [place], [place], [address] , [place]. [phone] PREV VISIT, EST, AGE 18-39 [facility], [address], [place], [place], [address], [place] tel:[phone] [facility] syphilis (chief complaint) Encntr for general adult medical exam w/o abnormal findings 9 Chino Pedro [address], [place], [place], [address] , [place]. [phone] Referring Provider: London Jiménez [address], [place], [place], [address]. tel:[phone] OFFICE/OUTPA TIENT VISIT, EST [facility], [address], [place], [place], [address], [place] tel:[phone] [facility] fatigue1 (chief complaint) weight gain1 (chief complaint) Abnormal weight gainFatigue 9 Chino Pedro [address], [place], [place], [address] , [place]. [phone] Referring Provider: Johnathon Magana, [address], [place], [place], [address]. tel:[phone] PREV VISIT, EST, AGE 18-39 [facility], [address], [place], [place], [address], [place] tel:[phone] [facility] PHysical (chief complaint) Encntr for general adult medical exam w/o abnormal findings 8 Chino Diego. [address], [place], [place], [address] , [place]. tel:[phone] Referring Provider: London Jiménez [address], [place], [place], [address]. tel:[phone] OFFICE/OUTPA TIENT VISIT, EST [facility], [address], [place], [address], [place] tel:[phone] [facility] overweight 1 (chief complaint) tobacco1 (chief complaint) Abnormal weight gainGeneralized anxiety disorder 7 Chino Diego. [address], [place], [address] , [place]. tel:[phone] Referring Provider: London Jiménez [address], [place], [place], [address]. tel:[phone] OFFICE/OUTPA TIENT VISIT, EST [facility], [address], [place], [address], [place] tel:[phone] [facility] weight gain1 (chief complaint) anxiety1 (chief complaint) fatigue1 (chief complaint) Abnormal weight gainGeneralized Anxiety DisorderAttention and concentration deficitDietary surveillance and counseling 7 Chino Diego. [address], [place], [address] , [place]. tel:[phone] Referring Provider: London Jiménez [address], [place], [place], [address]. tel:[phone] OFFICE/OUTPA TIENT VISIT, EST [facility], [address], [place], [place], [address], [place] tel:[phone] [facility] Weight issue (chief complaint) vitamin D (chief complaint) knee pain1 (chief complaint) Vitamin D deficiency, unspecifiedBody mass index (BMI) 23.0-23.9, adultPain in unspecified knee Nov-0 7 Chino Diego. [address], [place], [address] , [place]. tel:[phone] Referring Provider: London Jiménez [address], [place], [place], [address]. tel:[phone] PREV VISIT, EST, AGE 18-41 [facility], [address], [place], [place], [address], [place] tel:[phone] [facility] PHysical (chief complaint) Encntr for general adult medical exam w/o abnormal findings 7 Chino Diego. [address], [place], [address] , [place]. tel:[phone] Referring Provider: London Jiménez [address], [place], [place], [address]. tel:[phone] OFFICE/OUTPA TIENT VISIT, EST [facility], [address], [place], [place], [address], [place] tel:[phone] [facility] sick (chief complaint) weight loss1 (chief complaint) Abnormal weight gainAcute bronchitis, unspecified 6 Chino Diego. [address], [place], [place], [address] , [place]. tel:[phone] Referring Provider: London Jiménez [address], [place], [place], [address]. tel:[phone] OFFICE/OUTPA TIENT VISIT, EST [facility], [address], [place], [address], [place] tel:[phone] [facility] Weight gain1 (chief complaint) vitamin D (chief complaint) knee pain (chief complaint) anxiety1 (chief complaint) Abnormal weight gainPain in right kneeVitamin D deficiency, unspecifiedGenerali zed anxiety disorder 5 Chino Diego. [address], [facility] A, [place], [place], [address] , [place]. tel:[phone] Referring Provider: Johnathon Magana [address], [place], [place], [address]. tel:[phone] PREV VISIT, NEW, AGE 18-39 [facility], [address], [place], [place], [address], [place] tel:[phone] [facility] physical (chief complaint) Dietary surveillance and counselingEncounter for adult health check-up 5 Magana Johnathon. [address], [facility] A, [place], [place], [address] , . [phone] Referring Provider: Johnathon Magana London Romeo [facility] A, [place], [place], [address]. tel:[phone] Family History Family Member Type Diagnosis Age At Onset Mother Problem Thyroid disorder Sister Problem (finding) Alive and well Sister Problem (finding) Hypertension Mother Problem (finding) Alive and well Father Problem (finding) Diabetes mellitus type 2 Payers Payer name Insurance type Covered green party ID Authoriza tion(s) No Information Social History Type Description Quantity Date Captured Comments Alcohol Use Details Caffeine Use Details Unknown Tobacco Use Status Heavy cigarette smok er (20-39 cigs/day) Smoking Status Heavy tobacco smoker Sex Female Vital Signs Date / Time: Height Weight BMI Pulse Rate Blood Pressure Temperature Respiratory Rate Body Surface Area Head Circumference BMI percentile Pulse Ox Inhaled Ox 12:24 PM 97.3 F Chief Complaint And Reason For Visit From encounter dated '08/14/2022 12:19'. cough1 (chief complaint). Description: Pt c/o dry cough for 5-6 days Pt lorenzo any fever, chill Pt feels slightly sob with exertion. . Pt denies any sore throat o ear pain Pt is not vaccinated for COVID. Pt denies any wheezing. Pt denies any GI symptoms Plan Of Treatment Date Type Action Status Goal Tobacco cessation counseling completed Goal Special diet education compl eted Goal Special diet education compl eted Referral Ordered: US THYROID ordered Referral Referred To: Gretchen Trinidad [address] [place], [phone] Ordered: Referrals: Gretchen Trinidad. Evaluate and treat ordered Referral Referred To: Enrique Montoya [address] [place], [phone] Ordered: Referrals: Enrique Montoya. Evaluate and treat ordered Referral Ordered: KNEE XRAY TWO-VIEW Right ordered Referral Ordered: KNEE XRAY TWO-VIEW Bilateral ordered History Of Present Illness Encounter Date Complaint History Of Prese nt Illness cough1 Pt c/o dry cough for 5-6 days Pt lorenzo any fever, chill Pt feels slightly sob with exertion. . Pt denies any sore throat o ear pain Pt is not vaccinated for COVID. Pt denies any wheezing. Pt denies any GI symptoms vandana Pt has vandana thyroid disease .Pt denies any dysphagia or neck pain. Pt had another TSH done which was in normal range PANCHO Pt has positive PANCHO and some knee pain but no polyarthralgia. Rheumatology states that they never received the referral hashimoto1 Pt has vandana thyroid disease. Pt denies any dysphagia or neck pain. Pt has underactive thyroid on lab. Pt has ultrasound scheduled for tomorrow. Pt c/o feeling fatigue PANCHO Pt has positive PANCHO.. Pt denies any polyarthralgia. pt does have bilateral knee pain with some swelling. Pt is seeing ortho hashimoto Pt has elevated TPO. Pt denies any dysphagia or neck pain. Pt has family history of autoimmune thyroid disease. knee pain1 Pt has chronic b ilateral knee pain. Pt denies any knee swelling or redness or warmth. Pt denies any injury Pt denies any other joint pain. Pt went to see ortho who ordered some lab work and told her that she has rheumatoid arthritis Pt is very concerned about it. I reviewed her lab work from ortho who showed normal RA factor and her PANCHO is slightly elevated knee pain1 Pt c/o acute ons et of right knee pain since two days ago. Pt feels achy type of pain .Pt denies any swelling or redness or warmth Pt denies any calf pain Pt denies any injury Pt denies any recent travel or bedrest. her mom has chronic knee issue s/p early age knee replacement Pt feels that her cartilage in her knee is wearing thin. Pt does have chronic right knee pain with intermittent flare up weight loss1 Pt has been taki ng phentermine for the past 3 months and she lost between 5-10 pounds. Pt tolerating phentermine ok Pt denies any nausea ,vomiting, diarrhea. headache, chest pain. Pt wants to refill phentermine. physical Pt needs annual physical Pt overall feels well Pt gained some weight recently. Pt is not very physically active pt is rather sedentary. Pt wants to try phentermine again. Pt tolerated phentermine well in the past .Pt wants to try phentermine again .Pt denies any other complaints. sick Pt c/o acute ons et of running nose, sinus congestion, postnasal drainage, productive coughing with yellow phlegm, sore throat, sinus pain for 3 days Pt denies any sick contact Pt denies any loss of taste and smell. pt is not vaccinated for COVID Pt denies any headache or GI symptoms. Pt denies any fever or sob. Pt denies any dysphagia weight1 Pt has been taki ng phentermine for the past 3 months. Pt lost 20 pounds. Pt denies any chest pain, headache, dry mouth. Pt feels well with phentermine. eczema1 Pt c/o itching a nd peeling spot right palm area for 6 months. pt notices some bleeding sometimes. Pt feels pain when she open her palm. Pt denies any itching. Pt states that the skin cracks open whenever she tries to open her palm. Pt denies any scab. Pt notices a lot of flaking around the area Pt denies any spreading. Pt tried OTC cream but not helping. physical Pt needs annual physical. pt is 6 months . Pt is not breast feeding. Pt gained 30 pounds . Pt wants to try phentermine again Pt denies any other complaints syphilis Pt needs annual physical, Pt had multiple sex partners recently Pt was diagnosed with chlamydia and she [facility]. Pt denies any pelvic pain, vaginal discharge, etc Pt was tested negative for HIV and also GC. Pt was also tested positive for syphilis. Pt denies any symptoms, Pt is not sure when she was contracted for syphilis. Pt denies any painful vaginal blisters or any neurological symptoms, Pt received bicillin LA 2.4 million units x 2 dose already and she is due for 3rd and final dose today. fatigue1 Pt feels chronic fatigue. Pt sleeps ok at night. Pt does not have insomnia. pt states that she wakes up tired and feels tired all day. Pt states that she has lack of motivation. Pt denies any depression or any suicidal thought. Pt denies any anxiety. pt has difficulty with focus and concentration as well. Pt wants to try phentermine vs adderall. weight gain1 Pt has gained so me weight. Pt wants to try phentermine. PHysical Pt needs annual physical. Pt states that she wants some phentermine. Pt wants to try to suppress her appetite. Pt denies any GI issue. Pt denies any chest pain or headache. 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 Pt is afraid of taking anxiety meds Pt denies any depression or any suicidal thought. Pt denies any cyring spells overweight1 Pt took phenterm ine for 3 months pt wants to lose 10 more pounds Pt has been diet and exercising without any further weight loss. Pt wants to continue to take phentermine weight gain1 Pt has been gain ing weight again. pt is not very active Pt is trying diet and exercise but she keeps gaining weight. Pt used to take phentermine. which worked well. fatigue1 Pt feels fatigue . Pt has mild insomnia Pt denies any snoring or any trouble with breathing in the morning. Pt feels randomly tired throughout the day. Pt does not go to sleep until 2 am due to anxiety anxiety1 Pt has chronic a nxiety. Pt feels depressed sometimes due to anxiety. Pt denies any suicidal thought Pt feels very irritable. Pt feels angery all the time. Pt has diffiiculty with focus and concentration. Pt states that she gets frustrated about work and home life. 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 Pt denies any crying spells knee pain1 Pt has bilateral knee pain on and off for several years. Pt denies any injury. Pt denies any knee swelling. Her mom has chronic knee problem. Pt states that knee hurts randomly, especially when she bent her legs. . Pt denies any redness or warmth vitamin D Pt has low D. Re st of lab ok Weight issue Pt has been losi ng weight with phentermine. Pt denies any chest pain or headache. Pt feels more energy. Pt has lost some weight with phentermine Pt wants to continue it now. Pt states that she skipps dose someday PHysical Pt needs annual physical. pt gained 20 pounds since several months ago. Pt overall feels well. Pt took phentermine which worked well. Pt wants to try phentermine again . Pt denies any chest pain or headache with phentermine. Pt denies any other complaints sick Pt c/o persisten t sinus burning, drainage, postnasal, sore throat, mild ear pain and persistent dry and phlegmy cough for almost one week. Pt denies any fever, chill. Pt failed OTC meds. Pt denies any recen travel weight loss1 Pt has been taki ng phentemrine for 3 months Pt tolerating medication well. Pt denies any chest pain, headache, etc, Pt lost almost 25 pounds Pt denies any nausea, vomiting, diarrhea. Pt feels less appetite with phentemrine and also feels more energy and better focus. Pt wants to continue meds. anxiety1 PT feels anxious and sadness. Pt has personal relationship issue and also feels overwhelmed with some daily stress. Pt denies any thought of hurting herself or anybody else. Pt has some crying spells. Pt denies feeling hopelessness knee pain Location: knee. Additional information: Pt c/o bilateral knee pain for several months. Pt denies any injury. Pt notices sharp pain when she goes [employer]. Pt feels pain under knee cap, Pt denies any swelling Pt has constant pain. vitamin D Pt has low vitam in D on lab work. Rest of lab ok Weight gain1 Pt has been losi ng weight with phentermine. pt denies any chest pain or headache. Pt feels more energy and less appetite. physical 25 yo female nee ds annual physical. Pt gained 20 punds during last year. Pt had baby one year ago but did not lose to prepregnancy weight. Pt always feels hungry all the time. Pt eats large portion. Pt is working on diet and exercise but unable to lose weight. Pt denies any other complaints Instructions Date Instruction Additional Infor mation Special diet education Related t o Body mass index (BMI) 26.0-26.9, adult Increase physical activity Relat ed to Abnormal weight gain Weight management Related to Abn ormal weight gain Increase activity. Related to En cntr for general adult medical exam w/o abnormal findings Special diet education Related t o Body mass index (BMI) 24.0-24.9, adult Weight management Related to Abn ormal weight gain Quit smoking Related to Abnor mal weight gain Increase physical activity Relat ed to Abnormal weight gain Increase physical activity Relat ed to Abnormal weight gain Weight management Related to Abn ormal weight gain Prescribed Activity and Exercise Education Related to Dietary Surveillance and Counseling Prescribed Diet Educ ation/Lifestyle Education Regarding Diet Related to Dietary Surveillance and Counseling Prescribed Activity and Exercise Education Related to Dietary Surveillance and Counseling Prescribed Diet Educ ation/Lifestyle Education Regarding Diet Related to Dietary Surveillance and Counseling Assessments Type Assessment Date assessment Viral infection Mental Status Date Cognitive Assessment Orientation - [place] ed to time, place, person, situation.
== END 2024-09-19 14:32 | disposition home or self-care (01) ==
PROVIDERS: PCP Nurse Practitioner Adult Health; Visit Provider Obstetrics & Gynecology
DX: N92.6 Irregular menstruation, unspecified (principal)
CPT/HCPCS: 36415; 84702

== ENCOUNTER 2024-09-21 11:54 | Outpatient (CLI) | payer BC, SELFPAY ==
[2024-09-21 20:02] LABS: Beta HCG Quantitative 920.38 mIU/ML
== END 2024-09-21 11:55 | disposition home or self-care (01) ==
LOC: ANHBWCLAB 11:56
PROVIDERS: PCP Nurse Practitioner Adult Health; Visit Provider Obstetrics & Gynecology
DX: N92.6 Irregular menstruation, unspecified (principal)
CPT/HCPCS: 36415; 84702

== ENCOUNTER 2025-01-03 09:24 | Outpatient (CLI) | payer BC, SELFPAY ==
--- OUTSIDE RECORDS SUMMARY | 2025-01-03 09:57 | XMS_ITS | Continuity of Care Document ---
Author Organization [facility] Address [address] [place] [address] [place] [address] Phone Care Team Providers Care Portrait Photographer Name Role Phone Johnathon Magana MD Unavailable [...] Providers Copied on Encounter OFFICE/OUTPA TIENT VISIT, [facility], [address], [place], [place], [address], [place] tel:[phone] [facility] cough1 (chief complaint) Viral infection 2 Chino Pedro [address], [address], [place], [place], [address] , [place]. tel:[phone] OFFICE/OUTPA TIENT VISIT, [facility], [address], [place], [place], [address], [place] tel:[phone] [facility] vandana (chief complaint) Vandana's thyroiditis 2 Chino Pedro [address], [address], [place], [place], [address] , [place]. tel:[phone] OFFICE/OUTPA TIENT VISIT, [facility], [address], [place], [place], [address], [place] tel:[phone] [facility] hashimoto1 (chief complaint) PANCHO (chief complaint) Vandana's thyroiditisRaised antibody titer 2 Chino Pedro [address], [address], [place], [place], [address] , [place]. tel:[phone] OFFICE/OUTPA TIENT VISIT, [facility], [address], [place], [place], [address], [place] tel:[phone] [facility] PANCHO (chief complaint) hashimoto1 (chief complaint) Raised antibody titerHashimoto's thyroiditisPain in unspecified joint 2 Chino Pedro [address], [address], [place], [place], [address] , [place]. tel:[phone] OFFICE/OUTPA TIENT VISIT, EST [facility], [address], [place], [place], [address], [place] tel:[phone] [facility] knee pain1 (chief complaint) Raised antibody titerPain in unspecified joint Sep- 2 Chino Diego. [address], [address], [place], [place], [address] , [place]. tel:[phone] OFFICE/OUTPA TIENT VISIT, EST [facility], [address], [place], [place], [address], [place] tel:[phone] [facility] knee pain1 (chief complaint) Pain in right kneeChondromalacia patellae, right knee December- 2 Chino Diego. [address], [address], [place], [address] , [place]. tel:[phone] OFFICE/OUTPA TIENT VISIT, EST [facility], [address], [place], [place], [address], [place] tel:[phone] [facility] weight loss1 (chief complaint) Abnormal weight loss 2 Chino Diego. [address], [address], [place], [address] , [place]. tel:[phone] PREV VISIT, EST, AGE 18-39 [facility], [address], [place], [place], [address], [place] tel:[phone] [facility] physical (chief complaint) Encounter for general adult medical examination without abnormal findings 2 Chino Diego. [address], [address], [place], [address] , [place]. tel:[phone] OFFICE/OUTPA TIENT VISIT, EST [facility], [address], [place], [place], [address], [place] tel:[phone] [facility] sick (chief complaint) Viral infection Dec-0 1 Chino Pedro [address], [address], [place], [place], [address] , [place]. [phone] OFFICE/OUTPA TIENT VISIT, EST [facility], [address], [place], [place], [address], [place] tel:[phone] [facility] eczema1 (chief complaint) weight1 (chief complaint) Abnormal weight gainEczema 1 Chino Pedro [address], [address], [place], [place], [address] , [place]. tel:[phone] PREV VISIT, EST, AGE 18-39 [facility], [address], [place], [address], [place] tel:[phone] [facility] physical (chief complaint) Encounter for general adult medical examination without abnormal findings 1 Chino Pedro [address], [address], [place], [place], [address] , [place]. [phone] PREV VISIT, EST, AGE 18-41 [facility], [address], [place], [place], [address], [place] tel:[phone] [facility] syphilis (chief complaint) Encntr for general adult medical exam w/o abnormal findings 9 Chino Pedro [address], [address], [place], [place], [address] , [place]. [phone] Referring Provider: London Jiménez [address], [place], [place], [address]. tel:[phone] OFFICE/OUTPA TIENT VISIT, EST [facility], [address], [place], [address], [place] tel:[phone] [facility] fatigue1 (chief complaint) weight gain1 (chief complaint) Abnormal weight gainFatigue 9 Chino Pedro [address], [address], [place], [place], [address] , [place]. tel: [phone] Referring Provider: Johnathon Magana, [address], [place], [place], [address]. tel:[phone] PREV VISIT, EST, AGE 18-39 [facility], [address], [place], [place], [address], [place] tel:[phone] [facility] PHysical (chief complaint) Encntr for general adult medical exam w/o abnormal findings 8 Chino Diego. [address], [address], [place], [address] , [place]. tel:[phone] Referring Provider: London Jiménez [address], [place], [place], [address]. tel:[phone] OFFICE/OUTPA TIENT VISIT, EST [facility], [address], [place], [place], [address], [place] tel:[phone] [facility] overweight 1 (chief complaint) tobacco1 (chief complaint) Abnormal weight gainGeneralized anxiety disorder 7 Chino Diego. [address], [address], [place], [place], [address] , [place]. tel:[phone] Referring Provider: London Jiménez [address], [place], [place], [address]. tel:[phone] OFFICE/OUTPA TIENT VISIT, EST [facility], [address], [place], [address], [place] tel:[phone] [facility] weight gain1 (chief complaint) anxiety1 (chief complaint) fatigue1 (chief complaint) Abnormal weight gainGeneralized Anxiety DisorderAttention and concentration deficitDietary surveillance and counseling 7 Chino Diego. [address], [place], [place], [address] , [place]. tel:[phone] Referring Provider: London Jiménez [address], [place], [place], [address]. tel:[phone] OFFICE/OUTPA TIENT VISIT, EST [facility], [address], [place], [address], [place] tel:[phone] [facility] Weight issue (chief complaint) vitamin D (chief complaint) knee pain1 (chief complaint) Vitamin D deficiency, unspecifiedBody mass index (BMI) 23.0-23.9, adultPain in unspecified knee Nov-0 7 Chino Diego. [address], [place], [address] , [place]. tel:[phone] Referring Provider: London Jiménez [address], [place], [place], [address]. tel:[phone] PREV VISIT, EST, AGE 18-39 [facility], [address], [place], [place], [address], [place] tel:[phone] [facility] PHysical (chief complaint) Encntr for general adult medical exam w/o abnormal findings 7 Chino Diego. [address], [place], [place], [address] , [place]. tel:[phone] Referring Provider: London Jiménez [address], [place], [place], [address]. tel:[phone] OFFICE/OUTPA TIENT VISIT, EST [facility], [address], [place], [address], [place] tel:[phone] [facility] sick (chief complaint) weight loss1 (chief complaint) Abnormal weight gainAcute bronchitis, unspecified 6 Chino Diego. [address], [place], [place], [address] , [place]. tel:[phone] Referring Provider: London Jiménez [address], [place], [place], [address]. tel:[phone] OFFICE/OUTPA TIENT VISIT, EST [facility], [address], [place], [address], [place] tel:[phone] [facility] Weight gain1 (chief complaint) vitamin D (chief complaint) knee pain (chief complaint) anxiety1 (chief complaint) Abnormal weight gainPain in right kneeVitamin D deficiency, unspecifiedGenerali zed anxiety disorder 5 Chino Diego. [address], [facility] [address], [place], [place], [address] , [place]. tel:[phone] Referring Provider: Johnathon Magana [address], [place], [place], [address]. tel:[phone] PREV VISIT, NEW, AGE 18-39 [facility], [address], [place], [address], [place] tel:[phone] [facility] physical (chief complaint) Dietary surveillance and counselingEncounter for adult health check-up 5 Magana Johnathon. [address], [facility] [address], [place], [place], [address] , . [phone] Referring Provider: Johnathon Magana London Romeo [facility] [address], [place], [place], [address]. tel:[phone] Family History Family Member Type Diagnosis Age [...] To: Gretchen Trinidad [address] [place], [phone] Ordered: Referrals: Gretchen Trinidad. Evaluate and treat ordered Referral Referred To: Enrique Montoya [address] [place], [phone] Ordered: Referrals: Enrique Montoya. Evaluate and treat [...] TSH done which was in normal range hashimoto Pt has vandana thyroid disease. Pt denies any dysphagia or neck pain. Pt has underactive thyroid on lab. Pt has ultrasound scheduled for tomorrow. Pt c/o feeling fatigue PANCHO Pt has positive PANCHO and some knee pain but no polyarthralgia. Rheumatology states that they never received the referral PANCHO Pt has positive PANCHO.. Pt denies [...] or headache. Pt denies any other complaints overweight1 Pt took phenterm ine for 3 months pt wants to lose 10 more pounds Pt has been diet and exercising without any further weight loss. Pt wants to continue to take phentermine tobacco1 Pt restated toba tobacco wetter smoking again due to stress Pt did not try buspar. Pt is afraid of taking anxiety meds Pt denies any depression or any suicidal thought. Pt denies any cyring spells anxiety1 Pt has chronic a nxiety. Pt [...] the time. Pt denies any crying spells fatigue1 Pt feels fatigue . Pt has mild insomnia Pt denies any snoring or any trouble with breathing in the morning. Pt feels randomly tired throughout the day. Pt does not go to sleep until 2 am due to anxiety weight gain1 Pt has been gain ing weight again. pt is not very active Pt is trying diet and exercise but she keeps gaining weight. Pt used to take phentermine. which worked well. Weight issue Pt has been losi ng weight with phentermine. Pt denies any chest pain or headache. Pt feels more energy. Pt has lost some weight with phentermine Pt wants to continue it now. Pt states that she skipps dose someday vitamin D Pt has low D. Re st of lab ok knee pain1 Pt has bilateral knee pain on and off for several years. Pt denies any injury. Pt denies any knee swelling. Her mom has chronic knee problem. Pt states that knee hurts randomly, especially when she bent her legs. . Pt denies any redness or warmth PHysical Pt needs annual physical. pt gained 20 pounds since several months ago. Pt overall feels well. Pt took phentermine which worked well. Pt wants to try phentermine again . Pt denies any chest pain or headache with phentermine. Pt denies any other complaints weight loss1 Pt has been taki ng phentemrine for 3 months Pt tolerating medication well. Pt denies any chest pain, headache, etc, Pt lost almost 25 pounds Pt denies any nausea, vomiting, diarrhea. Pt feels less appetite with phentemrine and also feels more energy and better focus. Pt wants to continue meds. sick Pt c/o persisten t sinus burning, drainage, postnasal, sore throat, mild ear pain and persistent dry and phlegmy cough for almost one week. Pt denies any fever, chill. Pt failed OTC meds. Pt denies any recen travel Weight gain1 Pt has been losi ng weight with phentermine. pt denies any chest pain or headache. Pt feels more energy and less appetite. vitamin D Pt has low vitam in D on lab work. Rest of lab ok knee pain Location: knee. Additional information: Pt c/o bilateral knee pain for several months. Pt denies any injury. Pt notices sharp pain when she goes upstaris. Pt feels pain under knee cap, Pt denies any swelling Pt has constant pain. anxiety1 PT feels anxious and sadness. Pt has personal relationship issue and also feels overwhelmed with some daily stress. Pt denies any thought of hurting herself or anybody else. Pt has some crying spells. Pt denies feeling hopelessness physical 25 yo female nee ds annual [...] Education Related to Dietary Surveillance and Counseling Assessments Type Assessment Date assessment Viral infection Mental Status Date Cognitive Assessment Orientation - [place] ed to time, place, person, situation.
--- OUTSIDE RECORDS SUMMARY | 2025-01-03 09:57 | XMS_ITS | Data Portability ---
[facility] Address [address] [place] [address] Assessment No assessment recorded. Plan of Treatment [...] Address Organization Details Recorded Time Depressive disorder 70331535 Active Aliza Vargas MD Attn: Tessie krueger,[address] [facility], [place], [address], [facility] 6 11:34:21 Distorted body image 87584381 Active Aliza Vargas MD Attn: Tessie g,[address] [place], [address], [facility] 6 11:34:21 Problem Notes None recorded. Medical Equipment None Reported. Allergies Allergen ID Allergen Name Allergen Category Reaction Reaction Severity Criticality Documentation Date Start Date Code Code System Note Provider Name and Address Organization Details Recorded Time 48340 Substance with sulfonami de structure and antibacte rial mechanism of action (substanc e) medicatio n Not available Not available Not available 06/04/2016 44743 8003 SNOMED DUSTY Castro, [facility] 6 10:46:48 Medications Not known to be on any medication Vitals Date Recorded Respiratory rate Body height Body temperature Body mass index (BMI) Body weight Heart rate Systolic blood pressure Diastolic blood pressure Provider Name and Address Organization Details Last Updated DateTime 6 28 /min 157.48 cm 97.6 [degF] 25.3 kg/m2 35200.1 50682 g 84 /min 92 mm[Hg] 64 mm[Hg] Charity Parks MA [facility] 6 10:46:48 Social History Question Answer Notes LastModified by Organizat ion Details LastModified Time Tobacco Smoking Status Current Some Day Smoker Charity Parks MA null, [facility] 06/04/2016 10:46:48 How Much Tobacco Do You [...] Response Coronary Artery Disease N Other N Atrial Fibrillation N High Blood Pressure N Depression N COPD N Blood Clots N Anxiety Disorder N Muscle, Joint, or Bone Problems N Acid Reflux (GERD) N Cancer N Stroke N High Cholesterol N Liver Disease N Headaches N Kidney or Bladder Problems N Thyroid Problems N GI Problems N Skin Problems N Anemia N Heart Attack (NV) N Diabetes N Seizures/Epilepsy N Asthma N Allergies N Hepatitis N Heart Failure N Osteoporosis N Gynecological HistoryNo gynecological history recorded. Obstetrics History GPAL:G 0 P 0 0 0 0 Past Encounters Encounter ID Performer Location Encounter Start Date Encounter Closed Date Diagnosis/Indication Diagnosis SNOMED-CT Code Diagnosis ICD10 Code Diagnosis Note [id number] MD Taurus Hager (Adult Med) [address] [place] [address] 06/04/2016 10:29:46 06/04/2016 11:30:44 Adult health examination 325714461 Z00.00 Depressive disorder 3548 9007 F32.8 Pt offered referral to therapist. Says she is OK for now Family his tory of Thyroid disorder 140797673 Z83.49 Pt was tested one year ago Distorted body image 633 98297 F45.22 Pt requesting phentermin e for weight loss Health Concerns Section Related Observation LastModified by Organization Detai ls LastModified Time None Recorded Concern Status LastModified by Organization Details LastModified Time None Recorded Advance Directives Directive None Recorded Payers Encounter Date Sequence Insurance Name Policy Number Policy Melgar Covered Member ID Melgar Member ID Guarantor Name 06/04/2016 1 [facility] - DOS PRIOR TO 2021 (MEDICAID REPLACEMENT - HMO) Marcelle Pascal [id number] Marcelle Pascal Notes Date Note Type Note Provider Name and Address Organization Details Recorded Time 06/04/2016 text/html New patient visit Aliza Vargas MD Attn: Accounting,[address] [facility], [place], [address], [place] [facility] 06/04/2016 11:34:39 OBGyn Episode No OBEpisode recorded.
[2025-01-03 20:08] LABS: Glucose 1 Hour PP 50gm Dose 101 mg/dL
[2025-01-03 20:13] LABS: Basophils Percent Auto 0.2 % (0.2-1.2); Eosinophils Absolute Auto 0.1 K/mm3 (0-0.3); Eosinophils Percent Auto 1.4 % (0-4.4); Hematocrit 33.3 % (37.0-47.0); Hemoglobin 11.1 g/dL (12.0-15.0); Immature Granulocyte Absolute 0.05 K/mm3 (0.00-0.031); Immature Granulocyte Percent A 0.6 % (0-0.5); Lymphocytes Absolute Auto 1.22 K/mm3 (0.9-3.2); Lymphocytes Percent Auto 14.7 % (18.3-44.2); Mean Corpuscular HGB Conc 33.3 g/dl (32-36); Mean Corpuscular Hemoglobin 31.4 pg (26-34); Mean Corpuscular Volume 94.3 fl (80-100); Mean Platelet Volume 12.3 fl (7.4-10.4); Monocytes Absolute Auto 0.6 K/mm3 (0.1-0.6); Monocytes Percent Auto 6.9 % (2.6-8.5); Neutrophils Absolute Auto 6.3 K/mm3 (1.3-6.7); Neutrophils Percent Auto 76.2 % (45.5-73.1); Platelet Count Result 135 k/mm3 (150-375); Red Blood Count 3.53 M/mm3 (4.2-5.4); Red Cell Distribution Width 13.7 % (11.5-14.5); White Blood Count 8.3 K/mm3 (4.5-10.0)
[2025-01-03 21:06] LABS: HIV 1/2 Ab P24 Ag Result Negative (Negative)
[2025-01-04 00:33] LABS: Hepatitis B Surface Antigen Negative (Negative); Rubella IgG Antibody 14.4 IU/ML
[2025-01-05 03:13] LABS: Varicella IgG Antibody 4.73 S/CO
[2025-01-05 09:34] LABS: RPR Screen REACTIVE (NON-REACTIVE)
[2025-01-06 03:09] LABS: Progressive FTA-ABS POSITIVE (NEGATIVE)
== END 2025-01-03 09:25 | disposition home or self-care (01) ==
LOC: ANHBWCLAB 09:26
PROVIDERS: PCP Nurse Practitioner Adult Health; Visit Provider Obstetrics & Gynecology
DX: Z34.90 Encounter for supervision of normal pregnancy, unspecified, unspecified trimester (principal); Z3A.00 Weeks of gestation of pregnancy not specified
CPT/HCPCS: 36415; 82947; 85025; 86592; 86644; 86703; 86747; 86762; 86787; 86850; 86900; 86901; 87086; 87340; G0432

== ENCOUNTER 2025-04-04 09:29 | Outpatient (CLI) | payer BC, SELFPAY ==
--- OUTSIDE RECORDS SUMMARY | 2025-04-04 09:47 | XMS_ITS | Patient Health Record ---
Author Organization [facility] As [employer] [facility] Address [address] [facility] [address] [place] [address] Care Team Providers Care Cash Shortage Investigator Name Role Phone Karina Murray Unavailable [phone] Reason For Referral No Information Medications Medication SIG (Take, Route, Frequency, Duration) Notes Start Date End Date Status Norethindrone 0.35 MG Oral 01/04/2024 Active Mattei 0.35 MG Oral 01/04/2024 Act ary Phentermine HCl 37.5 MG Oral 01/04/2024 Active Ewmunfia-Otxhliwoi-Zlsmnqoq 3.5-75623-3.1 Ophthalmic 01/04/2024 Active Topiramate 25 MG Oral 01/04/2024 Ac tive Plan Of Treatment No Information Insurance Providers Payer Name Payer Address Payer Phone Subscriber Number Group Number Insured Name Patient Relationship to Insured Coverage Start Date Coverage End Date [employer] [address] [place] [address] [id number] MOE SINGH Self - patient is the insured Medical (General) History Surgical History Surgery Date(Month/Year) Other 06/15/2014
[2025-04-04 19:13] LABS: Glucose 1 Hour PP 50gm Dose 141 mg/dL
[2025-04-04 20:20] LABS: Syphilis IgG/IgM Antibody 130.00 S/C
[2025-04-04 20:21] LABS: Syphilis IgG/IgM Antibody Reactive (Nonreactive)
[2025-04-06 07:09] LABS: RPR Non Reactive (Non Reactive)
[2025-04-10 18:08] LABS: RPR Non Reactive (Non Reactive); RPR Reflex YES YES; Treponemal Abs,TPPA YES YES; Treponemal Antibodies, TPPA Reactive (Non Reactive)
== END 2025-04-04 09:30 | disposition home or self-care (01) ==
LOC: ANHBWCLAB 09:29
PROVIDERS: PCP Nurse Practitioner Adult Health; Visit Provider Obstetrics & Gynecology
DX: Z34.90 Encounter for supervision of normal pregnancy, unspecified, unspecified trimester (principal); Z3A.00 Weeks of gestation of pregnancy not specified
CPT/HCPCS: 36415; 82947; 86592; 86593; 86780

== ENCOUNTER 2025-05-24 08:46 | Outpatient (CLI) | payer BC, SELFPAY ==
--- OUTSIDE RECORDS SUMMARY | 2025-05-24 09:13 | XMS_ITS | Patient Health Record ---
Author Organization [facility] As [employer] [facility] Address [address] [place] [address] Care Team Providers Care Ocean Clam Boat Captain Name Role Phone Karina Murray Unavailable [phone] Reason For Referral No Information Medications Medication SIG (Take, Route, Frequency, Duration) Notes Start Date End Date Status Norethindrone 0.35 MG Tablet Oral 01/04/2024 Active Mattie 0.35 MG Tablet Oral 01/04/2024 Active Phentermine HCl 37.5 MG Capsule Oral 01/04/2024 Active Halirfjd-Yundpavvw-Jqhugjvr 3.5-56118-7.1 Ointment Ophthalmic 01/04/2024 Activ e Topiramate 25 MG Tablet Oral 01/04/2024 Active Social History Social History Additional Details Category Social Info Options Details Migrated Social History Migrated Social History Alcohol Intake: Moderate 12/15/2023,Tobacco Years: Current some days smoker 12/15/2023 Plan Of Treatment No Information Insurance Providers Payer Name Payer Address Payer Phone Subscriber Number Group Number Insured Name Patient Relationship to Insured Coverage Start Date Coverage End Date [employer] P[place] [address] [place] [address] [id number] MOE SINGH Self - patient is the insured Medical (General) History Surgical History Surgery Date(Month/Year) Other 06/15/2014
--- OUTSIDE RECORDS SUMMARY | 2025-05-24 09:13 | XMS_ITS | Clinical Summary ---
Author Organization [facility] Care Team Providers Care Sizer Machine Name Role Phone Unavailable Primary Care Provider Unavailabl e Allergies Active Allergy Reactions Criticality Noted Date Comments Sulfa Antibiotics Rash 04/10/2025 Encounters Date Type Department Care Team Description 04/10/2025 Telephone [facility] [address] [place] [address] Provider, Unknown Advice Only from Last 3 Months Social History Tobacco Use Types Packs/Day Years Used Date Smoking Tobacco: Never Assessed Estimated Date of Delivery Comme nts Yes 05/26/2025 Sex and Gender Information Value Date Recorded Sex Assigned at Not on file Legal Sex Female 7:54 AM CDT Gender Identity Not on file Sexual Orientation Not on file Plan of Treatment Not on file
--- OUTSIDE RECORDS SUMMARY | 2025-05-24 09:13 | XMS_ITS | Encounter Summary ---
Author Organization [facility] Address [address] [place] [address] Phone Care Team Providers Care Hydrate Thickener Operator Name Role Phone Unavailable Primary Care Provider Unavailabl e Reason for Visit * Reason Onset Date Comments Advice Only 04/10/2025 Encounter Details Date Type Department Care Team (Late st Contact Info) Description 04/10/2025 Telephone [facility] [address] [place] [address] Provider, Unknown UNKNOWN Advice Only Social History Tobacco Use Types Packs/Day Years Used Date Smoking Tobacco: Never Assessed Estimated Date of Delivery Comme nts Yes 05/26/2025 Sex and Gender Information Value Date Recorded Sex Assigned at Not on file Legal Sex Female 7:54 AM CDT Gender Identity Not on file Sexual Orientation Not on file documented as of this encounter Miscellaneous Notes * Telephone Encounter - Migdalia Lagos MD - 04/19/2025 8:40 AM CDT Called Mom back. Informed her that I will not be seeing pt in hospital. Did tell Mom that if I am concerned, I will consult with ID specialist. Mom has already also made me aware that she does not want pt to get Vit K or Hep B. Informed her ofrisks of GI and brain bleeds without Vit K, both extremely serious for pt. Mom worried that this will be given without consent- informed her that I have not seen this happen at [facility]. * Telephone Encounter - Kelsea Carrero RN - 04/17/2025 9:22 AM CDT Received staff message from call center today stating mom was calling back for an update. Unsure if you have been able to review this yet or not. * Telephone Encounter - Kelsea Carrero RN - 04/10/2025 10:52 AM CDT Called mom as she sent a message on her child's mychart (Kati Trevino) asking nurse to call back. Did not know mom has already spoke with triage nurse. Confirmed message that was taken by RN in call center. Mom confirmed. States she is having titers checked all through for RPR. She said her biggest concern is that with last daughter, she had levels in her system and were sent to specialist, started on penicillin but did not actually need this. Her OBGYN wanted Dr. Lagos to be aware.She said OB said there was test they could do on to check levels once born with immediate results. * Telephone Encounter - Sister Phylicia Isaacs RN - 04/10/2025 10:36 AM CDT Situation: Update on patient status Background: Patient contacting PCP office. 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 Patient states her OBGYN instructed her to notify thread spooler. Caller wanting to make thread spooler aware of this testing prior to of child. Recommendation: Please advise. Encounter routed to provider to notify. Please call patient back with provider advice regarding above. Discussed utilizing [employer] to: discuss if they would prefer a Tutumt message or phone call response. Response is preferred via Phone Call. documented in this encounter Plan of Treatment Not on file documented as of this encounter Visit Diagnoses Not on filedocumented in this encounter
--- OUTSIDE RECORDS SUMMARY | 2025-05-24 09:14 | XMS_ITS | Data Portability ---
Author Organization [facility] Address [address] [place] [address] Assessment No assessment recorded. Plan of Treatment [...] Address Organization Details Recorded Time Depressive disorder 45349855 Active Aliza Vargas MD Attn: Tessie krueger,[address] [place], [address], [facility] 11:34:21 Distorted body image [id number] Active Aliza Vargas MD Attn: Tessie g,[address] [place], [address], [facility] 11:34:21 Problem Notes None recorded. Medical Equipment None Reported. Allergies Allergen ID Allergen Name Allergen Category Reaction Reaction Severity Criticality Documentation Date Start Date Code Code System Note Provider Name and Address Organization Details Recorded Time 79776 Substance with sulfonami de structure and antibacte rial mechanism of action (substanc e) medicatio n Not available Not available Not available 06/04/2016 [id number] SNOMED DUSTY Castro, [facility] 10:46:48 Medications Not known to be on any medication Vitals Date Recorded Respiratory rate Body height Body temperature Body mass index (BMI) Body weight Heart rate Systolic And Diastolic Provider Name and Address Organization Details Last Updated DateTime 6 28 /min 157.48 cm 97.6 [degF] 25.3 kg/m2 96003.1 55720 g 84 /min 92/64 mm[Hg] Charity Parks MA [facility] 6 10:46:48 Social History Question Answer Notes LastModified by Organizat ion Details LastModified Time Tobacco Smoking Status Current Some Day Smoker Charity Parks MA null, [facility] 06/04/2016 10:46:48 How Much Tobacco Do You [...] Atrial Fibrillation N High Blood Pressure N Kidney or Bladder Problems N Thyroid Problems N GI Problems N Depression N COPD N Blood Clots N Skin Problems N Anemia N Heart Attack ([place]) N Anxiety Disorder N Diabetes N Muscle, [...] Diagnosis SNOMED-CT Code Diagnosis ICD10 Code Diagnosis IMO Codes Diagnosis Note [id number] MD Taurus Hager (Adult Med) [address] [place] [address] 06/04/2016 10:29:46 06/04/2016 11:30:44 Adult health examination 250225288 Z00.00 Depressive disorder 3548 9007 F32.8 Pt offered referral to therapist. Says she is OK for now Family his tory of Thyroid disorder [id number] Z83.49 Pt was tested one year ago Distorted body image 633 02033 F45.22 Pt requesting phentermin e for weight loss Health Concerns Section Related Observation LastModified by Organization Detai ls LastModified Time None Recorded Concern Status LastModified by Organization Details LastModified Time None Recorded Advance Directives Directive None Recorded Payers Insurance Date Sequence Insurance Name Policy Number Policy Melgar Covered Member ID Melgar Member ID Guarantor Name 06/04/2016 1 [facility] PRIOR TO 2021 (MEDICAID REPLACEMENT - HMO) Marcelle Pascal [id number] Marcelle Pascal Notes Date Note Type Note Provider Name and Address Organization Details Recorded Time 06/04/2016 text/html New patient visit Aliza Vargas MD Attn: Accounting,[address] [place], [address], [place] [facility] 06/04/2016 11:34:39 OBGyn Episode No OBEpisode recorded.
[2025-05-24 19:55] LABS: HIV 1/2 Ab P24 Ag Result Negative (Negative)
[2025-05-24 20:46] LABS: Syphilis IgG/IgM Antibody 152.00 S/C; Syphilis IgG/IgM Antibody Reactive (Nonreactive)
[2025-05-25 03:37] LABS: Reference Lab Test Name RPR; Reference Lab Test Result NONREACTIVE
[2025-05-25 03:38] LABS: Reference Lab Test Name TREPONEMAL AB; Reference Lab Test Result REACTIVE
== END 2025-05-24 08:47 | disposition home or self-care (01) ==
PROVIDERS: PCP Nurse Practitioner Adult Health; Visit Provider Obstetrics & Gynecology
DX: Z34.93 Encounter for supervision of normal pregnancy, unspecified, third trimester (principal); Z3A.00 Weeks of gestation of pregnancy not specified
CPT/HCPCS: 36415; 86593; 86703; G0432

== ENCOUNTER 2025-05-26 05:35 | Inpatient (IN) | payer BC, SELFPAY ==
[2025-05-26] VITALS (64 sets, daily range): BP systolic 62–126; BP diastolic 34–70; PULSE 51–96; RESP 12–20; TEMP 36.2–36.8; O2SAT 96–100; BMI 40.1
[2025-05-26] MEDS: LACTATED RINGERS 1,000 ML 125 ML IV CONT (06:04)
[2025-05-26 06:20] LABS: Hematocrit 35.7 % (37.0-47.0); Hemoglobin 12.1 g/dL (12.0-15.0); Immature Granulocyte Percent A 0.7 % (0-0.5); Lymphocytes Absolute Auto 1.63 K/mm3 (0.9-3.2); Mean Corpuscular HGB Conc 33.9 g/dl (32-36); Mean Corpuscular Hemoglobin 30.6 pg (26-34); Mean Corpuscular Volume 90.4 fl (80-100); Nucleated Red Blood Cells Absolute Auto 0.000 K/mm3 (0.0-0.012); Nucleated Red Blood Cells Perc 0.0 % (0.0-0.2); Platelet Count Result 120 k/mm3 (150-375); Red Blood Count 3.95 M/mm3 (4.2-5.4); White Blood Count 9.0 K/mm3 (4.5-10.0)
--- NOTE | 2025-05-26 06:56 | LDADM ---
This patient, Marcelle Trevino, was admitted to Labor/Delivery/Recovery 120 on 05/26/25 at 05:35. Plans for labor, pain management and were discussed with patient. Patient/family oriented to hospital policies and general routines including ID bracelet, bed and alarms, visiting hours, pain management, procedures, bathroom and other care routines, personal items, smoking policy, room service/diet and guest tray routines, infant security routines, and visiting hours. Patient/Family are encouraged to report perceived risks to care and to ask questions if they do not understand what they are told or what they should do. See OBIX for further documentation.
--- NOTE | 2025-05-26 07:01 | P.PNAN_ITS ---
Anes - Initial Pre Proc Eval Procedure: Operation Date: 05/26/25 07:30 Proposed Procedures p Repeat Section with Tubal Ligation - Nils He MD Date/Time: 05/26/25 07:01 Surgeon: Nils He MD Pre Op Diagnosis: Patient Data Age: 35 Gender: F Height: Weight: Allergies Allergy/AdvReac Type Severity Reaction Status Date / Time Sulfa (Sulfonamide Allergy Mild RASH Verified 05/23/25 14:07 Antibiotics) sulfite Allergy Unknown Skin Verified 05/23/25 14:07 Reaction Home Medications ?Medication ?Instructions ?Recorded ?Confirmed ?Type ferrous sulfate 325 mg (65 mg 325 mg PO DAILY #90 tabs 01/04/25 05/23/25 Rx iron) tablet vits no.126-ferrous fum 1 tablet PO .QD #30 t abs 05/17/25 05/23/25 Rx 28 mg iron-folic acid 800 mcg tablet (Classic ) Laboratory Tests 05/26/25 06:13 WBC 9.0 K/mm3 (4.5-10.0) RBC 3.95 L M/mm3 (4.2-5.4) Hgb 12.1 g/dL (12.0-15.0) Hct 35.7 L % (37.0-47.0) MCV 90.4 fl (80-100) MCH 30.6 pg (26-34) MCHC 33.9 g/dl (32-36) RDW 14.1 % (11.5-14.5) Plt Count 120 L k/mm3 (150-375) MPV 12.3 H fl (7.4-10.4) Immature Gran % (Auto) 0.7 H % (0-0.5) Neut % (Auto) 69.7 % (45.5-73.1) Lymph % (Auto) 18.1 L % (18.3-44.2) [place] % (Auto) 10.2 H % (2.6-8.5) Eos % (Auto) 1.0 % (0-4.4) Baso % (Auto) 0.3 % (0.2-1.2) Lymph # (Auto) 1.63 K/mm3 (0.9-3.2) [place] # (Auto) 0.9 H K/mm3 (0.1-0.6) Eos # (Auto) 0.1 K/mm3 (0-0.3) Baso # (Auto) 0.0 K/mm3 (0.0-0.1) Abs Immat Gran (auto) 0.06 H K/mm3 (0.00-0.031) Absolute Neuts (auto) 6.3 K/mm3 (1.3-6.7) Absolute Nucleated RBC 0.000 K/mm3 (0.0-0.012) Nucleated RBC % 0.0 % (0.0-0.2) Blood Type Pending Antibody Screen Pending Patient hx anesthesia problems: none Family hx anesthesia problems: none Results Review: All pre-operative results and documents have been reviewed as part of the pre- operative evaluation. [facility] Past Medical History Medical History Abnormal glucose tolerance in PANCHO positive Inflammatory arthritis Irregular menstrual bleeding Other subluxation of unspecified shoulder joint, sequela (05/19/18) Dermatitis, unspecified Depression Anxiety Patellofemoral pain syndrome Acute rheumatoid arthritis Right knee pain Left knee pain Irregular periods Syphilis 2018 Chlamydia Abnormal Pap smear of cervix 05/2013 lgsil; 09/28/14 lgsil (+) hpv Surgical History Surgical History History of 06/15/14 failure to progress 03/19/20 repeat c/s History of colposcopy with cervical biopsy 11/06/14 DUGLAS II-III Family History Family History Father Hypertension Diabetes mellitus Grandparent Hypertension paternal grandfather Diabetes mellitus paternal grandfather Son Diabetes mellitus Other Arthritis Depression HLD (hyperlipidemia) Social History Social History Years smoked: 18 Smoking status: Current some day smoker Tobacco type: cigarettes Second hand tobacco smoke exposure: No Alcohol intake: current Drinks per week: 3 Substance use: never Substance use type: does not use Last use: 2020 Lack of Transportation: No Lack of Food: Never True Current Housing: I Have Housing Concerned About Future Housing: No Difficulty Paying Gas/Electric Bills: No Difficulty Paying for Meds: No Currently Unemployed: No Education: Trade/Vocational Certificate Difficulty w/ Childcare or Family Care: No Living arrangements: with family Additional living arrangements comments: spouse Occupation/Education: other Additional occupation/education comments: stay at home mom Gender identity (if verbalized by the patient): Female Sexual Orientation (if Verbalized by the Patient): Straight or Heterosexual Spiritual care concerns: No Agree to blood products: Yes Anes - Eval Final PreProcedure Day of Procedure 05/26/25 07:01 Patient weight: obese Heart: regular rate and rhythm Lungs: decreased breath sounds Airway: Mallampati scale class II Neurological: alert and oriented Last oral intake: >/= 8 hours ASA classification: III Emergent: no Anesthetic plan: proceed Anesthesia type and monitoring: regional spinal and standard monitoring Results Review: All pre-operative results and documents have been reviewed as part of the pre- operative evaluation. Informed Consent: The patient's anesthetic plan and its attendant risks and benefits were discussed with the patient/family/POA. Questions were solicited and answers provided to the satisfaction of the patient/family/POA.
--- NOTE | 2025-05-26 07:16 | P.HP_ITS ---
H&P: HPI History of Present Illness Date/Time: 05/26/25 07:16 35-year-old 3 para 2000 female presents at 30 weeks gestation for repeat delivery. She has had 2 prior deliveries. Also desires salpingectomy, understands permanence failure rate and increased risk of ectopic and regret. Also on day 1 treatment for syphilis in 2019 and all of her screening since that time has been appropriate. Chief Complaint: Review of Systems Review of Systems: All systems reviewed & are unremarkable except as noted in HPI and below PMFSH Past Medical History Medical History Abnormal glucose tolerance in PANCHO positive Inflammatory arthritis Irregular menstrual bleeding Other subluxation of unspecified shoulder joint, sequela (05/19/18) Dermatitis, unspecified Depression Anxiety Patellofemoral pain syndrome Acute rheumatoid arthritis Right knee pain Left knee pain Irregular periods Syphilis 2019 Chlamydia Abnormal Pap smear of cervix 05/2013 lgsil; 09/28/14 lgsil (+) hpv Surgical History Surgical History History of 06/15/14 failure to progress 03/19/20 repeat c/s History of colposcopy with cervical biopsy 11/06/14 DUGLAS II-III Family History Family History Father Hypertension Diabetes mellitus Grandparent Hypertension paternal grandfather Diabetes mellitus paternal grandfather Son Diabetes mellitus Other Arthritis Depression HLD (hyperlipidemia) Social History Social History Years smoked: 18 Smoking status: Former smoker Tobacco type: cigarettes Second hand tobacco smoke exposure: No Alcohol intake: current Drinks per week: 3 Substance use: never Substance use type: does not use Last use: 2020 Lack of Transportation: No Lack of Food: Never True Current Housing: I Have Housing Concerned About Future Housing: No Difficulty Paying Gas/Electric Bills: No Difficulty Paying for Meds: No Currently Unemployed: No Education: Decline to Answer Difficulty w/ Childcare or Family Care: No Living arrangements: with family Additional living arrangements comments: spouse Occupation/Education: other Additional occupation/education comments: stay at home mom Gender identity (if verbalized by the patient): Female Sexual Orientation (if Verbalized by the Patient): Straight or Heterosexual Spiritual care concerns: No Agree to blood products: Yes Meds Home Medications and Allergies Home Medications ?Medication ?Instructions ?Recorded ?Confirmed ?Type ferrous sulfate 325 mg (65 mg 325 mg PO DAILY #90 tabs 01/04/25 05/23/25 Rx iron) tablet vits no.126-ferrous fum 1 tablet PO .QD #30 t abs 05/17/25 05/23/25 Rx 28 mg iron-folic acid 800 mcg tablet (Classic ) Allergies Allergy/AdvReac Type Severity Reaction Status Date / Time Sulfa (Sulfonamide Allergy Mild RASH Verified 05/23/25 14:07 Antibiotics) sulfite Allergy Unknown Skin Verified 05/23/25 14:07 Reaction Vital Signs Vital Signs - 24 hr 05/26/25 06:54 Oxygen Delivery Room Air Exam Resp: Effort & Inspection: normal respiratory effort Auscultation: clear to auscultation bilaterally Cardio: Rate: regular rate Rhythm: regular rhythm GI: Inspection: normal to inspection Auscultation: normal bowel sounds : Bimanual exam- vagina & uterus: enlarged (FH 40 FHT 140) H&P: Results Labs Labs: Short CBC 05/26/25 Range/Units 06:13 WBC 9.0 (4.5-10.0) K/mm3 Hgb 12.1 (12.0-15.0) g/dL Hct 35.7 L (37.0-47.0) % Plt Count 120 L (150-375) k/mm3 Assessment and Plan Assessment and plan (1) 39 weeks gestation of : Code(s): Z3A.39 - 39 weeks gestation of Status: Acute (2) Previous delivery affecting : Code(s): O34.219 - Maternal care for unspecified type scar from previous delivery Status: Acute (3) Encounter for female sterilization procedure: Code(s): Z30.2 - Encounter for sterilization Status: Acute (4) Syphilis: Code(s): A53.9 - Syphilis, unspecified Status: Acute Plan 1. proceed with repeat section 2. bilateral salpingectomy
[2025-05-26] MEDS: ceFAZolin 2 GM in SODIUM CHLORIDE 0.9% IV 50 ML 100 ML IVPB (07:26)
--- NOTE | 2025-05-26 07:58 | S_PTH ---
PATIENT: Marcelle Trevino LOC: [facility] U#:[id number] AGE/SX: 35/F ROOM: 282 RE05/26/[address]: Nils He MD : 1990 BED: 00 DIS: 05/29/2025 SPEC #: [id number] RECD: 05/26/25 10:00 STATUS: VIVEK REQ #: [id number] SHELLEY: 05/26/25 07:[address]: Nils He DEPT: [facility] Surgical RECD BY: Catalina Rosa ENTERED: 05/26/25 10:01 SP TYPE: Surgical OTHR DR: Monae Sandoval APRN Tissues: A - Fallopian Tube Bilateral Procedures: Gross and Microscopic Level 2 Hematoxylin and Eosin Stain
--- NOTE | 2025-05-26 08:19 | WPDHPUPDATE1 ---
History and Physical Update Update Date/Time: 05/26/25 08:19 History and Physical has been reviewed, including an updated exam of the patient. There are NO changes in the patient's condition. Risks, benefits, and alternatives have been discussed and questions answered. Patient agrees to proceed with procedure.
--- NOTE | 2025-05-26 08:19 | W.PM.OBCSD ---
OB - Delivery Note Procedure Delivery date: 05/26/25 Pre-op diagnosis: Previous Delivery and Other ( 2. History treated syphilis 3.Undesired fertility) Post-op Diagnosis: Same Procedure Performed: Repeat Secondary branch: low cervical, transverse and Tubal Ligation ( bilateral salpingectomy) Surgeon: Nils He MD Anesthesia type: Spinal Description of Procedure/Findings: patient prepped and draped usual manner for this procedure. Pfannenstiel seizure was made and carried down to the fascia which was then extended bilaterally the length of the skin incision. Superiorly and inferiorly the rectus muscle then dissected and the peritoneum was readily entered. Bladder flap was developed. Uterus scored with clear fluid and low-transverse incision was noted. Vertex was delivered without difficulty section naso-oropharynx wrist baby was delivered without difficulty. After 1minute cord clamped cut baby was passed off the operative field. Placenta manually removed. Uterus was exteriorized. Cleared of membranes and clots and closed using 0 Monocryl running interlocking manner with good approximation hemostasis noted. Bilaterally tubes were grasped and doubly ligated using 0 plain suture and tubes removed included the fimbriated edge. Uterus was turned the abdomen gutters were cleared her serous and fluids and clots. All subfascial tissue was noted be hemostatic and the fascia was then approximated 0 Vicryl from left angle midline the right of the midline good approximation. Subcutaneous tissue was approximated 0 plain juana were used to approximate the skin edges. Patient was then sent to recovery room in stable condition. Specimen: Yes ( 1. Placenta 2. Fallopian tubes bilateral) Estimated Blood Loss: 345 Drains: Yes ( catheter) Packing: No Pathology: Yes Complications: No immediate complications Condition: Stable Disposition: Floor Baby Gestational Age by Date: 39 gender: Female Weight (pounds): 7 Weight (ounces): 14 presentation: vertex Placenta delivery description: Manual Removal Cord Vessel Description: 3 Vessels, Nuchal Cord and Reduced
[2025-05-26] MEDS: OXYTOCIN 30 UNITS/NS 500 ML 30 UNITS/500 ML BAG 125 UNITS IV CONT (08:44)
[2025-05-26] MEDS: KETOROLAC 15 MG/ML VIAL (*BKC) IV PUSH ×3 (10:01→23:24)
[2025-05-26] MEDS: MORPHINE SULFATE INJ (*CRX) 10 MG/ML AMP 3 MG IV PUSH (10:32)
--- NOTE | 2025-05-26 11:19 | OBPPTRN ---
1048-Patient transferred to post room 282# via stretcher. Support person present. Oriented to unit, room, information board, rooming in, admission packet and security measures. Patient verbalizes understanding.
[2025-05-26] MEDS: LIDOCAINE 5% PATCH 1 PATCH TRANSDERM (11:37)
[2025-05-26] MEDS: DOCUSATE SODIUM 100 MG CAPSULE PO ×2 (11:39→17:47)
[2025-05-26] MEDS: MULTIVIT/MIN/PREN/FOL AC/IRON TABLET 1 TAB PO (11:39)
[2025-05-26] MEDS: SIMETHICONE 80 MG TAB.CHEW PO ×2 (11:40→17:48)
[2025-05-26] MEDS: ACETAMINOPHEN 500 MG TABLET 1000 MG PO ×3 (11:41→23:26)
--- NOTE | 2025-05-26 11:57 | PC.NURSE ---
Consulted with patient to assess needs related to . Discussed with mother her successes, concerns and any questions she has. We reviewed working with the , supporting breast, protecting her nipples with an optimal deep latch, good positioning, and good hand washing. Encouraged understanding the benefits of skin to skin, responding to feeding cues, frequencies of feeding 8-12 times in 24 hours (approximately 2-3 hours), duration of feedings, milk production, intake/output feeding sheet and signs of adequate intake encouraging swallowing at the breast. Reviewed positioning and alignment, supporting breast, off-centered (asymmetrical latch) and leading with the chin with big, open, wide gape. latched optimally to the [right] breast in [football] position. Education given to the mother of how to visualize the suckling (with good rocking jaw motion) swallows (dropping of the lower jaw) and how to listen for drinking at the breast (the ka sound). The infant was [able] to maintain latch without discomfort to mother. Nipple care reviewed with optimal latch, good positioning and using clean hands when touching her breast. Resources used to facilitate learning were used from the [visual handouts/ tool/mom and baby guide]. Mother voiced understanding of the education shared, to call for assistance if the does not latch or if there is discomfort with . Reported to the Primary RN.
[2025-05-26] MEDS: DEXTROSE 5%/0.45% SOD CHL 1,000 ML 125 ML IV CONT (13:27)
[2025-05-27] MEDS: oxyCODONE HCL (*CRX) 5 MG TAB IR PO ×3 (03:32→22:01)
[2025-05-27 04:30] VITALS: BP 97/56; PULSE 68; RESP 14; TEMP 36.7; O2SAT 99
[2025-05-27] MEDS: ACETAMINOPHEN 500 MG TABLET 1000 MG PO ×4 (05:32→23:52)
[2025-05-27] MEDS: KETOROLAC 15 MG/ML VIAL (*BKC) IV PUSH (05:32)
[2025-05-27 07:57] VITALS: BP 109/52; PULSE 78; RESP 16; TEMP 36.6; O2SAT 98
[2025-05-27] MEDS: MULTIVIT/MIN/PREN/FOL AC/IRON TABLET 1 TAB PO (10:02)
[2025-05-27] MEDS: SIMETHICONE 80 MG TAB.CHEW PO ×3 (10:03→16:07)
[2025-05-27] MEDS: DOCUSATE SODIUM 100 MG CAPSULE PO ×2 (10:03→16:07)
[2025-05-27 10:17] LABS: Hematocrit 31.6 % (37.0-47.0); Hemoglobin 10.5 g/dL (12.0-15.0); Immature Granulocyte Percent A 0.6 % (0-0.5); Lymphocytes Absolute Auto 1.07 K/mm3 (0.9-3.2); Mean Corpuscular HGB Conc 33.2 g/dl (32-36); Mean Corpuscular Hemoglobin 30.4 pg (26-34); Mean Corpuscular Volume 91.6 fl (80-100); Nucleated Red Blood Cells Absolute Auto 0.000 K/mm3 (0.0-0.012); Nucleated Red Blood Cells Perc 0.0 % (0.0-0.2); Platelet Count Result 102 k/mm3 (150-375); Red Blood Count 3.45 M/mm3 (4.2-5.4); White Blood Count 8.1 K/mm3 (4.5-10.0)
--- NOTE | 2025-05-27 10:20 | P.PNOB_ITS ---
OB - PN: Subj Subjective Date/time seen: 05/27/25 10:20 S: Pain controlled. Diet/ambulation without issue. Void as well. O: VSS afebrile abd: +BS soft inc c/d/i labs: noted Routine postop/ care OB - PN: Obj Data Labs 05/27/25 10:08 Labs: Laboratory Results - last 24 hr 05/27/25 10:08 WBC 8.1 RBC 3.45 L Hgb 10.5 L Hct 31.6 L MCV 91.6 MCH 30.4 MCHC 33.2 RDW 14.5 Plt Count 102 L MPV 12.6 H Immature Gran % (Auto) 0.6 H Neut % (Auto) 76.7 H Lymph % (Auto) 13.3 L [place] % (Auto) 8.2 Eos % (Auto) 1.0 Baso % (Auto) 0.2 Lymph # (Auto) 1.07 [place] # (Auto) 0.7 H Eos # (Auto) 0.1 Baso # (Auto) 0.0 Abs Immat Gran (auto) 0.05 H Absolute Neuts (auto) 6.2 Absolute Nucleated RBC 0.000 Nucleated RBC % 0.0 OB - PN A/P Time Spent With Patient Time: Total time spent is greater than 50% in coordination of care (as documented) at patient's floor/unit and/or counseling patient:
[2025-05-27] MEDS: LIDOCAINE 5% PATCH 1 PATCH TRANSDERM (11:00)
[2025-05-27] MEDS: IBUPROFEN 600 MG TABLET PO ×3 (11:54→23:51)
--- NOTE | 2025-05-27 17:08 | WPDANLDPN2 ---
Anes-Prog Note L&D Date/Time: 05/27/25 17:08 Comfortable throughout: section Neuraxial method: spinal Epidural/Spinal procedure site: clean & non-tender Neuro status: Neuro function grossly intact. Cardiovascular status: normal Respiratory status: normal Airway patency: baseline Mental status: baseline Post-Op hydration status: normal Vital Signs: Last Vital Signs Temp 97.8 F 05/27/25 07:57 Pulse 78 05/27/25 07:57 Resp 16 05/27/25 07:57 BP 109/52 L 05/27/25 07:57 Pulse Ox 98 05/27/25 07:57 O2 Del Method Room Air 05/26/25 11:50 Pain score (VAS): 0/10 I/O: Intake & Output 05/27/25 05/27/25 05/27/25 07:59 15:59 23:59 Intake Total 500 Output Total 800 Balance -300 Post-procedural complaints: none Patient feedback: Patient satisfied with anesthetic care.
--- NOTE | 2025-05-27 17:09 | WPDANLDNPN2 ---
Anes-Prog Note L&D-Neuraxial Date/Time: 05/27/25 17:09 Neuraxial medications: intrathecal PF morphine Opiod-related complaints: none Patient feedback: Patient satisfied with post-operative pain management.
[2025-05-27 19:28] VITALS: BP 105/58; PULSE 72; RESP 12; TEMP 36.5; O2SAT 99
[2025-05-28 04:00] VITALS: BP 99/64; PULSE 67; RESP 14; TEMP 36.6; O2SAT 99
[2025-05-28] MEDS: oxyCODONE HCL (*CRX) 5 MG TAB IR PO ×4 (06:25→22:17)
[2025-05-28] MEDS: ACETAMINOPHEN 500 MG TABLET 1000 MG PO ×4 (06:26→23:41)
[2025-05-28] MEDS: SIMETHICONE 80 MG TAB.CHEW PO ×3 (06:26→16:30)
[2025-05-28] MEDS: MULTIVIT/MIN/PREN/FOL AC/IRON TABLET 1 TAB PO (06:26)
[2025-05-28] MEDS: DOCUSATE SODIUM 100 MG CAPSULE PO ×2 (06:27→16:30)
[2025-05-28] MEDS: IBUPROFEN 600 MG TABLET PO ×4 (06:27→23:41)
[2025-05-28 08:15] VITALS: BP 103/66; PULSE 67; RESP 18; TEMP 36.8
--- NOTE | 2025-05-28 09:54 | P.DS_ITS ---
DS: Admitting Diagnosis Discharge Date 05/29/2025 Admitting Diagnosis DS: Discharge Diagnosis Discharge Diagnosis (1) , delivered: Code(s): O80 - Encounter for full-term uncomplicated delivery Status: Acute OB - DS: Summary OB Procedures : None OB Procedures Intrapartum: and Tubal ligation OB Procedures: : None Peripartum Data Procedures: Procedures Operation Date: 05/26/25 07:30 Actual Procedure Side Surgeon p Repeat Section with Tubal Ligation Nils He MD Time Spent with Patient Time attestation: Total time spent providing and/or coordinating discharge services: DS: Data Data Completed and Pending Pending studies at discharge: Pending at discharge 05/26/25 07:58 Surgical [PTH] Routine Labs on day of discharge: Labs from last 24 hours 05/27/25 10:08 WBC 8.1 RBC 3.45 L Hgb 10.5 L Hct 31.6 L MCV 91.6 MCH 30.4 MCHC 33.2 RDW 14.5 Plt Count 102 L MPV 12.6 H Immature Gran % (Auto) 0.6 H Neut % (Auto) 76.7 H Lymph % (Auto) 13.3 L [place] % (Auto) 8.2 Eos % (Auto) 1.0 Baso % (Auto) 0.2 Lymph # (Auto) 1.07 [place] # (Auto) 0.7 H Eos # (Auto) 0.1 Baso # (Auto) 0.0 Abs Immat Gran (auto) 0.05 H Absolute Neuts (auto) 6.2 Absolute Nucleated RBC 0.000 Nucleated RBC % 0.0 Discharge Plan Discharge Discharging Clinician: Nils He Patient Disposition: Home Activity: no straining, follow weight bearing status and pelvic rest Diet: as tolerated Wound Care Instructions: incision open to air Patient Instructions: Antibiotic Form Patient Language: Luxembourger Stand Alone Forms: General Discharge Information Follow-up/Referrals: Nils He MD [Physician, LEAD PRINTER] - 4 Weeks Discharge Medications: New oxycodone 5 mg Tablet 5 mg PO Q4H PRN (Reason: Pain Rated 4-6) Qty: 30 0RF ibuprofen 600 mg Tablet 600 mg PO Q6HR Qty: 30 0RF Continued ferrous sulfate 325 mg (65 mg iron) tablet 325 mg PO DAILY Qty: 90 3RF Classic 28 mg iron- 800 mcg tablet 1 tablet PO .QD Qty: 30 3RF Date of admission: 05/26/25 05:35 Primary Care Provider: Monae Sandoval Admitting Provider: Nils He Attending physician on admission: Nils He Condition: Stable
[2025-05-28] MEDS: LIDOCAINE 5% PATCH 1 PATCH TRANSDERM (12:30)
[2025-05-28 19:05] VITALS: BP 116/55; PULSE 66; RESP 18; TEMP 36.4; O2SAT 97
[2025-05-29] MEDS: ACETAMINOPHEN 500 MG TABLET 1000 MG PO (05:05)
[2025-05-29] MEDS: IBUPROFEN 600 MG TABLET PO (05:06)
[2025-05-29] MEDS: oxyCODONE HCL (*CRX) 5 MG TAB IR PO ×2 (05:06→10:49)
[2025-05-29 07:30] VITALS: BP 115/61; PULSE 65; RESP 16; TEMP 36.6; O2SAT 98
--- NOTE | 2025-05-29 09:00 | PC.NURSE ---
Consulted with mother concerning needs and she shared her ability to independently latch infant. She initially had a shallow latch and her nipples became scabbed. She is now working for a deep latch and it is less painful without further nipple trauma. Encouraged patient to call out for a latch check prior to discharge. Mother is feeding appropriately for growth of and understands stimulating infant to eat if needed. has had appropriate feedings in the last 24 hours meets the outcomes for weight, output, blood sugar and jaundice at this time. Baby is breast and bottle feeding with formula. Reinforced understanding of milk production, transition of milk, signs of adequate intake, transition of stool, prevention/relief of engorgement, plugged ducts, mastitis, responsive watching for feeding cues, community resources, and when to call a provider using the resource of the feeding sheet along with the mom and baby guide. She has a Mom Cozy pump at home. Mother voiced understanding of the information shared, is confident to continue effectively her at home, when to call for assistance, denies any additional assistance or education at this time. Reported to the Primary RN.
[2025-05-29] MEDS: SIMETHICONE 80 MG TAB.CHEW PO (09:30)
[2025-05-29] MEDS: DOCUSATE SODIUM 100 MG CAPSULE PO (09:30)
[2025-05-29] MEDS: MULTIVIT/MIN/PREN/FOL AC/IRON TABLET 1 TAB PO (09:30)
== END 2025-05-29 11:35 | disposition home or self-care (01) | DRG 785 ==
LOC: ANHLDR 05:39 → ANHOB2 11:26
PROVIDERS: Admitting Provider Obstetrics & Gynecology; PCP Nurse Practitioner Adult Health; Visit Provider Obstetrics & Gynecology
PROC: 10D00Z1 Extraction of Products of Conception, Low, Open Approach (ICD-10-PCS; CPT 59514; principal; 2025-05-26 07:30)
DX: O34.211 Maternal care for low transverse scar from previous cesarean delivery (principal); Z37.0 Single live birth; Z3A.39 39 weeks gestation of pregnancy; O69.81X0 Labor and delivery complicated by cord around neck, without compression, not applicable or unspecified; Z30.2 Encounter for sterilization
CPT/HCPCS: 36415; 85025; 86850; 86900; 86901; 88302; J0690; A9270; J1885; J2270; J2274; J2590; J7120